=== PATIENT | female | born 1970 | race Caucasian/White ===

== ENCOUNTER 2017-10-03 07:18 | Day surgery (SDC) | payer MEDICAID ==
[2017-10-03] MEDS ORDERED: Propofol 200 MG/20 ML SDV ONE (07:41)
[2017-10-03] MEDS ORDERED: fentaNYL 100 MCG/2 ML SDV ONE (07:41)
[2017-10-03] MEDS ORDERED: Midazolam 1 MG/ML 2 ML SDV ONE (07:41)
[2017-10-03] MEDS ORDERED: Lactated Ringers 1,000 ML IV SCH (08:30)
--- NOTE | 2017-10-04 08:09 | PROC ---
DATE OF PROCEDURE: 10/03/2017 INDICATION: Brittney is a 47-year-old female, who comes in because of abdominal pain. The abdominal pain is unresponsive to taking medication, and the pain continues. The Olympus 180 endoscope was used. PROCEDURE IN DETAIL: Anesthesia was given by nurse clinical operations manager. During the procedure, we used 2 mg of Versed, 2 mcg of fentanyl, and 200 mg of propofol. With a gloved finger, the tube was placed into the pharynx, into the esophagus without difficulty and advanced under direct vision into the body of the stomach. The pylorus identified and advanced into the first and second part of the duodenum. Upon retraction of the tube, noticed no significant duodenal erythema in the duodenal bulb, no ulcerations were noted. The tube was brought back into the stomach, which revealed mucosal erythema. The tube was retroflexed into the fundus, which revealed no abnormality. The greater and lesser curvature were closely evaluated and revealed no acute pathology. The biopsy was done of the antral area for Helicobacter pylori. The air was withdrawn from the stomach. The GE junction was identified. There was a small hiatal hernia noted. The remainder of the esophagus was unremarkable. The vocal cords moved symmetrically, no obvious pathology noted. The tube was removed. The patient tolerated the procedure well. PREOPERATIVE DIAGNOSIS: Abdominal pain. POSTOPERATIVE DIAGNOSES: 1. Duodenitis. 2. Mucosal erythema. Biopsies pending for Helicobacter pylori. Bar Glvoer MD /[id number]
== END 2017-10-03 09:45 | disposition home or self-care (01) ==
LOC: JP.SDS 07:18
PROVIDERS: ATTEND Internal Medicine
DX: K29.80 Duodenitis without bleeding (principal); K31.89 Other diseases of stomach and duodenum; K44.9 Diaphragmatic hernia without obstruction or gangrene; K21.9 Gastro-esophageal reflux disease without esophagitis; F31.9 Bipolar disorder, unspecified; Z88.2 Allergy status to sulfonamides
CPT/HCPCS: 43239; 87081; J2250; J2704; J3010; J7120

== ENCOUNTER 2018-07-11 11:14 | Emergency (ER) | payer MEDICAID, MEDICARE ==
--- NOTE | 2018-07-11 11:51 | EDM.PDOC ---
ED HPI GENERAL MEDICAL PROBLEM - General Chief Complaint: Cardiovascular Problem Stated Complaint: HYPOTENSION Time Seen by Provider: 07/11/18 11:35 Source of Information: Reports: Patient, Old Records, RN History Limitations: Reports: No Limitations - History of Present Illness INITIAL COMMENTS - FREE TEXT/NARRATIVE: 48 yo female was seen at the clinic this morning and had a near syncopal spell while standing that was associated with low BP. Had not eaten anything today before her appt. Is feeling better now in the ER after a glass of water. No recent fever, vomiting, diarrhea or bleeding. Onset: Today Onset Date: 07/11/18 Onset Time: 11:10 Duration: Resolved Prior to Arrival Location: Reports: Generalized Quality: Reports: Other (no new pain) Severity: Moderate Improves with: Reports: Rest, Other (lying, drinking water) Worsens with: Reports: Other (standing in one place) Context: Reports: Other (see HPI) Associated Symptoms: Reports: Diaphoresis (now resolved). Denies: Chest Pain, Fever/Chills, Shortness of Breath Treatments MAIL SUPERINTENDENT: Reports: Other (see below) (water orally) Right Hand Pain Score (Numeric/FACES): 8 - Related Data Allergies Allergy/AdvReac Type Severity Reaction Status Date / Time Sulfa (Sulfonamide Allergy Hives Verified 02/26/18 08:39 Antibiotics) Home Meds: Home Meds Cholecalciferol (Vitamin D3) [Vitamin D3] 5,000 unit PO DAILY 10/01/17 [History] Cyanocobalamin (Vitamin B-12) [B-12] 500 mcg PO DAILY 10/01/17 [History] Ferrous Sulfate, Dried [Slow Release Iron] 200 mg PO DAILY 10/01/17 [History] Gabapentin [Neurontin] 600 mg PO DAILY 10/01/17 [History] Perphenazine 6 mg PO TID 10/01/17 [History] Propranolol HCl [Propranolol HCl ER] 120 mg PO DAILY 10/01/17 [History] QUEtiapine Fumarate [Seroquel Xr] 800 mg PO BEDTIME 10/01/17 [History] Zolpidem Tartrate 10 mg PO BEDTIME PRN 10/01/17 [History] lamoTRIgine [Lamotrigine] 200 mg PO DAILY 10/01/17 [History] Ascorbic Acid [Vitamin C] 500 mg PO DAILY 10/03/17 [History] Furosemide 20 mg PO DAILY 02/19/18 [History] Omeprazole 40 mg PO DAILY 02/19/18 [History] Past Medical History HEENT History: Reports: None Respiratory History: Reports: Sleep Apnea Gastrointestinal History: Reports: GERD Genitourinary History: Reports: None RADIOSONDE SPECIALIST History: Reports: Endometriosis, Musculoskeletal History: Reports: Other (See Below) Other Musculoskeletal History: will be having carpal tunnel surgery 07/22/18 Psychiatric History: Reports: Anxiety, Bipolar, Depression, Other (See Below) Other Psychiatric History: essential tremors Endocrine/Metabolic History: Reports: Hyperthyroidism Hematologic History: Reports: Anemia, Iron Deficiency - Infectious Disease History Infectious Disease History: Reports: Chicken Pox - Past Surgical History HEENT Surgical History: Reports: Adenoidectomy, Tonsillectomy Respiratory Surgical History: Reports: None GI Surgical History: Reports: None Female Surgical History: Reports: Section, Hysterectomy, Salpingo- Oophorectomy Endocrine Surgical History: Reports: None Dermatological Surgical History: Reports: None Social & Family History - Family History Family Medical History: Noncontributory - Tobacco Use Smoking Status *Q: Current Every Day Smoker Years of Tobacco use: 35 Packs/Tins Daily: 0.5 - Caffeine Use Caffeine Use: Reports: Coffee, Soda - Recreational Drug Use Recreational Drug Use: No ED ROS GENERAL - Review of Systems Review Of Systems: See Below Constitutional: Reports: Diaphoresis (transient with spell) HEENT: Reports: No Symptoms Respiratory: Reports: No Symptoms Cardiovascular: Reports: Lightheadedness Endocrine: Reports: No Symptoms GI/Abdominal: Reports: No Symptoms : Reports: No Symptoms Musculoskeletal: Reports: No Symptoms Skin: Reports: Diaphoresis Neurological: Reports: No Symptoms ED EXAM, GENERAL - Physical Exam Exam: See Below Exam Limited By: No Limitations General Appearance: Alert, WD/WN, No Apparent Distress Eye Exam: Bilateral Eye: Normal Inspection Ears: Normal External Exam, Normal Canal, Hearing Grossly Normal, Normal TMs Ear Exam: Bilateral Ear: Auricle Normal, Canal Normal, TM normal Nose: Normal Inspection, Normal Mucosa, No Blood Throat/Mouth: Normal Inspection, Normal Lips, Normal Oropharynx, Normal Voice, No Airway Compromise Head: Atraumatic, Normocephalic Neck: Normal Inspection Respiratory/Chest: No Respiratory Distress, Lungs Clear, Normal Breath Sounds, No Accessory Muscle Use Cardiovascular: Regular Rate, Rhythm, No Edema GI/Abdominal: Normal Bowel Sounds, Soft, Non-Tender, No Distention Back Exam: Normal Inspection. No: CVA Tenderness (R), CVA Tenderness (L) Extremities: Normal Inspection, Normal Range of Motion, Non-Tender, No Pedal Edema Neurological: Alert, Oriented, CN II-XII Intact, Normal Cognition, No Motor/ Sensory Deficits Psychiatric: Normal Affect, Normal Mood Skin Exam: Warm, Dry, Intact, Normal Color Lymphatic: No Adenopathy Course - Vital Signs Last Recorded V/S: Last Vital Signs Temp 35.6 C 07/11/18 11:26 Pulse 99 07/11/18 11:26 Resp 16 07/11/18 11:26 BP 117/71 07/11/18 11:26 Pulse Ox 99 07/11/18 11:26 Orthostatic Blood Pressure [ 117/71 Supine] Orthostatic Blood Pressure [ 102/65 Standing] Orthostatic Blood Pressure [ 111/75 Sitting] Departure - Departure Time of Disposition: 11:50 Disposition: Home, Self-Care 01 Condition: Good Clinical Impression: Vaso vagal episode Instructions: Vasovagal Syncope, Adult Referrals: Bar Glover Sr, MD [Primary Care Provider] - Additional Instructions: Go home and have lunch and drink ample fluids. Recheck as needed.
== END 2018-07-11 12:09 | disposition home or self-care (01) ==
LOC: JP.ED 11:14
DX: R55 Syncope and collapse (principal); F17.210 Nicotine dependence, cigarettes, uncomplicated; E03.9 Hypothyroidism, unspecified; K21.9 Gastro-esophageal reflux disease without esophagitis; F31.9 Bipolar disorder, unspecified; F41.9 Anxiety disorder, unspecified; Z79.899 Other long term (current) drug therapy; Z88.2 Allergy status to sulfonamides
CPT/HCPCS: 99284

== ENCOUNTER 2018-12-27 21:36 | Emergency (ER) | payer MEDICARE ==
--- NOTE | 2018-12-27 21:44 | EDM.PDOC ---
ED HPI GENERAL MEDICAL PROBLEM - General Chief Complaint: Drug or Alcohol Abuse Stated Complaint: INTOXCATION Time Seen by Provider: 12/27/18 21:43 Source of Information: Reports: Patient, EMS, Old Records, RN History Limitations: Reports: Other (poor historian, intoxicated) - History of Present Illness INITIAL COMMENTS - FREE TEXT/NARRATIVE: 47 yo female is brought in by EMS after her boyfriend called saying she was "in and out of conscousness". EMS noted he was intoxicated and she appeared to also be intoxicated. She has a benzodiazepine prescribed, but EMS couldn't locate her bottle. She was fully conscious, but not helpful with regards to history per EMS report. Vital stable. Patient reports feeling depressed lately. Onset: Today Onset Date: 12/27/18 Duration: Hour(s): Location: Reports: Generalized Quality: Reports: Other (no reported pain) Severity: Severe (intoxication) Improves with: Reports: Other (? abstinence from intoxicant's) Worsens with: Reports: Other (drugs and alcohol) Context: Reports: Other (uncertain, suspect intoxication) Associated Symptoms: Reports: Confusion Treatments NEUROSCIENCE DIRECTOR NA: Reports: Other (see below) (none) - Related Data Allergies Allergy/AdvReac Type Severity Reaction Status Date / Time Sulfa (Sulfonamide Allergy Hives Verified 12/27/18 22:10 Antibiotics) Home Meds: Home Meds LORazepam [Ativan] 1 mg PO ASDIRECTED PRN 12/27/18 [History] Naproxen [Naprosyn] 250 mg PO BID 12/27/18 [History] ED ROS GENERAL - Review of Systems Review Of Systems: Unable To Obtain (due to intoxication) - Physical Exam Exam: See Below Exam Limited By: No Limitations General Appearance: WD/WN, No Apparent Distress, Lethargic Eye Exam: Bilateral Eye: Normal Inspection Ears: Normal External Exam, Normal Canal, Hearing Grossly Normal, Normal TMs Nose: Normal Inspection, No Blood Throat/Mouth: Normal Inspection, Normal Lips, Normal Oropharynx, Normal Voice, No Airway Compromise Head Exam: Atraumatic, Normocephalic Neck: Normal Inspection Respiratory/Chest: No Respiratory Distress, Lungs Clear, Normal Breath Sounds, No Accessory Muscle Use Cardiovascular: Regular Rate, Rhythm, No Edema GI/Abdominal: Normal Bowel Sounds, Soft, Non-Tender, No Distention Neuro Exam (Abbreviated): CN II-XII Intact, No Motor/Sensory Deficits, Inattentive, Slow to Respond Back Exam: Normal Inspection. No: CVA Tenderness (R), CVA Tenderness (L) Extremities: Normal Inspection, Normal Range of Motion, Non-Tender, No Pedal Edema Psychiatric: Normal Mood, Flat Affect Skin Exam: Warm, Dry, Intact, Normal Color, No Rash Course - Vital Signs Last Recorded V/S: Last Vital Signs Temp 36.7 C 12/27/18 22:01 Pulse 89 12/28/18 04:05 Resp 13 12/28/18 04:05 BP 133/83 12/28/18 04:05 Pulse Ox 98 12/28/18 04:05 - Orders/Labs/Meds Orders: Active Orders 24 hr Category Date Time Status NS + KCl 20mEq/L [Normal Saline with 20 mEq KCl] 1,000 Med 12/27/18 22:30 Active ml IV ASDIRECTED NS + KCl 20mEq/L [Normal Saline with 20 mEq KCl] 1,000 Med 12/27/18 23:45 Active ml IV ASDIRECTED Medication Orders Potassium Chloride/Sodium Chloride (Normal Saline With 20 Meq Kcl) 1,000 mls @ 1,000 mls/hr IV ASDIRECTED ANNITA Last Admin: 12/27/18 22:38 Dose: 1,000 mls/hr Potassium Chloride/Sodium Chloride (Normal Saline With 20 Meq Kcl) 1,000 mls @ 250 mls/hr IV ASDIRECTED ANNITA Last Admin: 12/28/18 00:38 Dose: 250 mls/hr Labs: Laboratory Tests 12/27/18 12/27/18 12/27/18 Range/Units 21:47 21:47 21:47 WBC 9.1 (4.5-11.0) K/uL RBC 3.08 L (3.30-5.50) M/uL Hgb 10.7 L (12.0-15.0) g/dL Hct 32.8 L (36.0-48.0) % MCV 107 H (80-98) fL MCH 35 H (27-31) pg MCHC 33 (32-36) % Plt Count 274 (150-400) K/uL Sodium 139 L (140-148) mmol/L Potassium 2.8 L* (3.6-5.2) mmol/L Chloride 98 L (100-108) mmol/L Carbon Dioxide 27 (21-32) mmol/L Anion Gap 16.8 H (5.0-14.0) mmol/L BUN 9 (7-18) mg/dL Creatinine 1.3 H (0.6-1.0) mg/dL Est Cr Clr Drug Dosing 48.14 mL/min Estimated GFR (MDRD) 44 L (>60) Glucose 101 (74-106) mg/dL Calcium 9.6 (8.5-10.1) mg/dL Magnesium (1.8-2.4) mg/dL Total Bilirubin 0.3 (0.2-1.0) mg/dL AST 20 (15-37) U/L ALT 21 (12-78) U/L Alkaline Phosphatase 75 (46-116) U/L Total Protein 6.5 (6.4-8.2) g/dL Albumin 3.4 (3.4-5.0) g/dL Globulin 3.1 (2.3-3.5) g/dL Albumin/Globulin Ratio 1.1 L (1.2-2.2) Urine Color Urine Appearance Urine pH (4.5-8.0) Ur Specific [place] (1.008-1.030) Urine Protein (NEGATIVE) mg/dL Urine Glucose (UA) (NEGATIVE) mg/dL Urine Ketones (NEGATIVE) mg/dL Urine Occult Blood (NEGATIVE) Urine Nitrite (NEGATIVE) Urine Bilirubin (NEGATIVE) Urine Urobilinogen (NORMAL) mg/dL Ur Leukocyte Esterase (NEGATIVE) Urine RBC (0-5) Urine WBC (0-5) Ur Epithelial Cells Amorphous Sediment Urine Bacteria Urine Mucus Urine Opiates Screen (NEGATIVE) Ur Oxycodone Screen (NEGATIVE) Urine Methadone Screen (NEGATIVE) Ur Propoxyphene Screen (NEGATIVE) Ur Barbiturates Screen (NEGATIVE) Ur Tricyclics Screen (NEGATIVE) Ur Phencyclidine Scrn (NEGATIVE) Ur Amphetamine Screen (NEGATIVE) U Methamphetamines Scrn (NEGATIVE) Urine MDMA Screen (NEGATIVE) U Benzodiazepines Scrn (NEGATIVE) U Cocaine Metab Screen (NEGATIVE) U Marijuana (THC) Screen (NEGATIVE) Ethyl Alcohol 184 mg/dL 12/27/18 12/27/18 12/28/18 Range/Units 21:58 22:20 00:13 WBC (4.5-11.0) K/uL RBC (3.30-5.50) M/uL Hgb (12.0-15.0) g/dL Hct (36.0-48.0) % MCV (80-98) fL MCH (27-31) pg MCHC (32-36) % Plt Count (150-400) K/uL Sodium (140-148) mmol/L Potassium (3.6-5.2) mmol/L Chloride (100-108) mmol/L Carbon Dioxide (21-32) mmol/L Anion Gap (5.0-14.0) mmol/L BUN (7-18) mg/dL Creatinine (0.6-1.0) mg/dL Est Cr Clr Drug Dosing mL/min Estimated GFR (MDRD) (>60) Glucose (74-106) mg/dL Calcium (8.5-10.1) mg/dL Magnesium 1.0 L (1.8-2.4) mg/dL Total Bilirubin (0.2-1.0) mg/dL AST (15-37) U/L ALT (12-78) U/L Alkaline Phosphatase (46-116) U/L Total Protein (6.4-8.2) g/dL Albumin (3.4-5.0) g/dL Globulin (2.3-3.5) g/dL Albumin/Globulin Ratio (1.2-2.2) Urine Color Yellow Urine Appearance Clear Urine pH 6.0 (4.5-8.0) Ur Specific [place] 1.010 (1.008-1.030) Urine Protein Negative (NEGATIVE) mg/dL Urine Glucose (UA) Negative (NEGATIVE) mg/dL Urine Ketones Negative (NEGATIVE) mg/dL Urine Occult Blood Negative (NEGATIVE) Urine Nitrite Negative (NEGATIVE) Urine Bilirubin Negative (NEGATIVE) Urine Urobilinogen Normal (NORMAL) mg/dL Ur Leukocyte Esterase Negative (NEGATIVE) Urine RBC 0-5 (0-5) Urine WBC 0-5 (0-5) Ur Epithelial Cells Many Amorphous Sediment Numerous Urine Bacteria Few Urine Mucus Few Urine Opiates Screen Negative (NEGATIVE) Ur Oxycodone Screen Negative (NEGATIVE) Urine Methadone Screen Negative (NEGATIVE) Ur Propoxyphene Screen Negative (NEGATIVE) Ur Barbiturates Screen Negative (NEGATIVE) Ur Tricyclics Screen Negative (NEGATIVE) Ur Phencyclidine Scrn Negative (NEGATIVE) Ur Amphetamine Screen Negative (NEGATIVE) U Methamphetamines Scrn Negative (NEGATIVE) Urine MDMA Screen Negative (NEGATIVE) U Benzodiazepines Scrn Presumptive positive H (NEGATIVE) U Cocaine Metab Screen Negative (NEGATIVE) U Marijuana (THC) Screen Negative (NEGATIVE) Ethyl Alcohol mg/dL 12/28/18 Range/Units 06:06 WBC (4.5-11.0) K/uL RBC (3.30-5.50) M/uL Hgb (12.0-15.0) g/dL Hct (36.0-48.0) % MCV (80-98) fL MCH (27-31) pg MCHC (32-36) % Plt Count (150-400) K/uL Sodium (140-148) mmol/L Potassium 3.3 L (3.6-5.2) mmol/L Chloride (100-108) mmol/L Carbon Dioxide (21-32) mmol/L Anion Gap (5.0-14.0) mmol/L BUN (7-18) mg/dL Creatinine (0.6-1.0) mg/dL Est Cr Clr Drug Dosing mL/min Estimated GFR (MDRD) (>60) Glucose (74-106) mg/dL Calcium (8.5-10.1) mg/dL Magnesium 2.2 D (1.8-2.4) mg/dL Total Bilirubin (0.2-1.0) mg/dL AST (15-37) U/L ALT (12-78) U/L Alkaline Phosphatase (46-116) U/L Total Protein (6.4-8.2) g/dL Albumin (3.4-5.0) g/dL Globulin (2.3-3.5) g/dL Albumin/Globulin Ratio (1.2-2.2) Urine Color Urine Appearance Urine pH (4.5-8.0) Ur Specific [place] (1.008-1.030) Urine Protein (NEGATIVE) mg/dL Urine Glucose (UA) (NEGATIVE) mg/dL Urine Ketones (NEGATIVE) mg/dL Urine Occult Blood (NEGATIVE) Urine Nitrite (NEGATIVE) Urine Bilirubin (NEGATIVE) Urine Urobilinogen (NORMAL) mg/dL Ur Leukocyte Esterase (NEGATIVE) Urine RBC (0-5) Urine WBC (0-5) Ur Epithelial Cells Amorphous Sediment Urine Bacteria Urine Mucus Urine Opiates Screen (NEGATIVE) Ur Oxycodone Screen (NEGATIVE) Urine Methadone Screen (NEGATIVE) Ur Propoxyphene Screen (NEGATIVE) Ur Barbiturates Screen (NEGATIVE) Ur Tricyclics Screen (NEGATIVE) Ur Phencyclidine Scrn (NEGATIVE) Ur Amphetamine Screen (NEGATIVE) U Methamphetamines Scrn (NEGATIVE) Urine MDMA Screen (NEGATIVE) U Benzodiazepines Scrn (NEGATIVE) U Cocaine Metab Screen (NEGATIVE) U Marijuana (THC) Screen (NEGATIVE) Ethyl Alcohol mg/dL Meds: Medications Generic Name Dose Route Start Last Admin Trade Name Freq PRN Reason Stop Dose Admin Potassium Chloride/Sodium Chloride 1,000 mls @ 1,000 mls/hr 12/27/18 22:30 22:38 Normal Saline With 20 Meq Kcl IV 1,000 mls/hr ASDIRECTED ANNITA Administration Potassium Chloride/Sodium Chloride 1,000 mls @ 250 mls/hr 12/27/18 23:45 00:38 Normal Saline With 20 Meq Kcl IV 250 mls/hr ASDIRECTED ANNITA Administration Discontinued Medications Generic Name Dose Route Start Last Admin Trade Name Freq PRN Reason Stop Dose Admin Magnesium Sulfate 2 gm/ Premix 50 mls @ 12.5 mls/hr 12/27/18 22:36 12/27/18 22:55 IV 12/28/18 02:35 12.5 mls/hr ONETIME ONE Administration Magnesium Sulfate 2 gm/ Premix 50 mls @ 12.5 mls/hr 12/28/18 02:09 12/28/18 02:33 IV 12/28/18 06:08 12.5 mls/hr ONETIME ONE Administration Magnesium Oxide 800 mg 12/27/18 22:37 12/27/18 23:00 Magnesium Oxide PO 12/27/18 22:38 800 mg ONETIME ONE Administration Potassium Chloride 40 meq 12/27/18 22:37 12/27/18 23:00 Potassium Chloride PO 12/27/18 22:38 40 meq ONETIME ONE Administration Potassium Chloride 40 meq 12/28/18 02:10 12/28/18 02:30 Potassium Chloride PO 12/28/18 02:11 40 meq ONETIME ONE Administration Potassium Chloride 40 meq 12/28/18 07:24 Potassium Chloride PO 12/28/18 07:25 ONETIME ONE Thiamine HCl 100 mg 12/28/18 02:14 12/28/18 02:30 Vitamin B-1 PO 12/28/18 02:15 100 mg ONETIME ONE Administration Departure - Departure Time of Disposition: 08:00 Disposition: Home, Self-Care 01 Condition: Fair Clinical Impression: Hypomagnesemia, Hypokalemia, Macrocytic anemia Alcohol intoxication Qualifiers: Complication of substance-induced condition: with unspecified complication Qualified Code(s): F10.929 - Alcohol use, unspecified with intoxication, unspecified - Discharge Information *PRESCRIPTION DRUG MONITORING PROGRAM REVIEWED*: No *COPY OF PRESCRIPTION DRUG MONITORING REPORT IN PATIENT JOSÉ LUIS: No Instructions: Potassium Content of Foods, Hypomagnesemia Referrals: PCP,None [Primary Care Provider] - Forms: ED Department Discharge Additional Instructions: No alcohol consumption. F/U with Dr. Glover soon to get your labs reviewed as soon as possible. Return here as needed. - My Orders Last 24 Hours: My Active Orders 12/27/18 22:30 NS + KCl 20mEq/L [Normal Saline with 20 mEq KCl] 1,000 ml IV ASDIRECTED 12/27/18 23:45 NS + KCl 20mEq/L [Normal Saline with 20 mEq KCl] 1,000 ml IV ASDIRECTED - Assessment/Plan Last 24 Hours: My Active Orders 12/27/18 22:30 NS + KCl 20mEq/L [Normal Saline with 20 mEq KCl] 1,000 ml IV ASDIRECTED 12/27/18 23:45 NS + KCl 20mEq/L [Normal Saline with 20 mEq KCl] 1,000 ml IV ASDIRECTED
[2018-12-27] MEDS ORDERED: NS + KCl 20mEq/L 1,000 ML IV SCH ×2 (22:30→23:45)
[2018-12-27] MEDS ORDERED: Magnesium Sulfate/Water 2 GM in Premix Bag 1 BAG IV ONE (22:36)
[2018-12-27] MEDS ORDERED: Potassium Chloride 10 MEQ Cap.ER PO ONE (22:37)
[2018-12-27] MEDS ORDERED: Magnesium Oxide 400 MG Tab PO ONE (22:37)
[2018-12-28] MEDS ORDERED: Magnesium Sulfate/Water 2 GM in Premix Bag 1 BAG IV ONE (02:09)
[2018-12-28] MEDS ORDERED: Potassium Chloride 10 MEQ Cap.ER PO ONE ×2 (02:10→07:24)
[2018-12-28] MEDS ORDERED: Thiamine 100 MG Tab PO ONE (02:14)
== END 2018-12-28 08:20 | disposition home or self-care (01) ==
LOC: EDBD 21:36 → MERGE 21:36 → JP.ED 21:36
DX: F10.129 Alcohol abuse with intoxication, unspecified (principal); Y90.6 Blood alcohol level of 120-199 mg/100 ml; D53.9 Nutritional anemia, unspecified; E87.6 Hypokalemia; E83.42 Hypomagnesemia; Z88.2 Allergy status to sulfonamides; Z79.899 Other long term (current) drug therapy
CPT/HCPCS: 36415; 80053; 80305; 81001; 83735; 84132; 85027; 96365; 96366; 96367; 96368; 99283; A9270; G0480; J3475; J3480; 99284

== ENCOUNTER 2020-02-09 07:45 | Day surgery (SDC) | payer MEDICARE ==
[~2020-02-09 07:45] MED LIST: Lidocaine 2% Viscous Solution 15 ML Cup ONE; Lidocaine 4% Top Soln 50 ML Bottle ONE; Midazolam 1 MG/ML 2 ML SDV ONE; Propofol 200 MG/20 ML SDV ONE; fentaNYL 100 MCG/2 ML SDV ONE
[2020-02-09] MEDS ORDERED: Dextrose 5%-Lactated Ringers 1,000 ML IV SCH (08:15)
[2020-02-09] MEDS ORDERED: Glycopyrrolate 0.2 MG/ML 2 ML SDV IVPUSH ONE (08:45)
[2020-02-09] MEDS ORDERED: Propofol 200 MG/20 ML SDV ONE (08:57)
[2020-02-09] MEDS ORDERED: Lidocaine 4% Top Soln LTA 4 ML Syringe Kit ONE (08:58)
--- NOTE | 2020-02-17 11:21 | OR ---
DATE OF PROCEDURE: 02/09/2020 SURGEON: Bennie Cat MD PREOPERATIVE DIAGNOSIS: Chronic cough. POSTOPERATIVE DIAGNOSIS: Chronic cough with no grossly abnormal bronchoscopic findings. OPERATIVE PROCEDURE: Flexible bronchoscopy with: 1. General tracheobronchial washings (50907). 2. Bronchoalveolar lavage to the right upper lobe ([id number]). ANESTHESIA: Topical plus IV sedation. INDICATIONS FOR PROCEDURE: This 49-year-old female presenting with a 3-month history of chronic cough. The patient had a CT scan which was otherwise unremarkable along with a chest x-ray. Plan is to proceed with flexible bronchoscopy with biopsies and/or the lavage as indicated. Potential risks including bleeding, aspiration of gastric contents, and further infectious problems developing were all reviewed, and the patient wishes to proceed. DETAILS OF PROCEDURE: The patient was taken to the operating room, placed in a supine position. IV sedation was administered, after which the nasal passages, pharynx, and larynx were anesthetized with topical lidocaine solution, and Anesthesia then passed lidocaine into the trachea. The bronchoscope was then passed to the right side of the nose. Visualized nasopharynx, hypopharynx, and larynx were otherwise unremarkable. Cord motion was symmetrical. As one passed the scope into the trachea, generalized tracheobronchial examination was undertaken. This was associated with some mucoid secretions which were relatively easily broken up with some saline and lidocaine injections. Otherwise, there were no gross abnormalities on the tracheobronchial examination. At this point, generalized tracheobronchial washings were obtained and these were sent for microbiologic and cytologic workup. At this point, the bronchoscope was wedged in the right upper lobe bronchus and 200 mL of saline was injected after which the aspirate was evacuated. It was noted that the return had a thin loo brown appearance indicating some possible pathology. This return was also then sent for cytology as well as full microbiologic workup. At that point, no further problems were noted. The procedure was then concluded. The patient was taken to the recovery room in satisfactory condition. The patient will be following up with Dr. Glover in the next week or so. If the patient's symptoms persist and there is no specific diagnosis achieved by the washings and lavage, one might consider adding some nebulizer treatments with Mucomyst and then perhaps Pulmonary Medicine consultation. Bennie Cat MD /[id number]
== END 2020-02-09 10:30 | disposition home or self-care (01) ==
LOC: JP.SDS 07:45
PROVIDERS: ATTEND Surgery
DX: J20.9 Acute bronchitis, unspecified (principal); I10 Essential (primary) hypertension; Z87.891 Personal history of nicotine dependence
CPT/HCPCS: 31624; 87015; 87070; 87102; 87116; 87205; 87206; 87220; 88112; 88305; 88312; A9270; J2250; J2704; J3010; J3490; J7121

== ENCOUNTER 2020-10-23 14:46 | Inpatient (IN) | payer MEDICARE, SELFPAY ==
[2020-10-23] MEDS ORDERED: Sodium Chloride 0.9% 10 ML Syringe FLUSH PRN (15:11)
[2020-10-23] MEDS ORDERED: Aspirin 81 MG Tab.Chew PO ONE (15:13)
[2020-10-23] MEDS ORDERED: Famotidine 20 MG/2 ML SDV IVPUSH ONE (15:36)
[2020-10-23] MEDS ORDERED: Alum Hydrox/Mag Hydrox/Simeth 15 ML, Lidocaine 2% 15 ML PO ONE ×2 (15:36)
[2020-10-23] MEDS ORDERED: MVI, Adult with Vitamin K 10 ML, Thiamine 100 MG, Folic Acid 1 MG, Magnesium Sulfate 3 ... IV SCH ×5 (15:45)
[2020-10-23] MEDS ORDERED: Potassium Chloride 20 MEQ, Lidocaine 1% 2 ML in Sodium Chloride 0.9% 100 ML IV SCH (16:00)
[2020-10-23] MEDS: Potassium Chloride 100 ML IV SCH ×2 (16:35→19:51)
--- NOTE | 2020-10-23 16:40 | EDM.PDOC ---
ED HPI GENERAL MEDICAL PROBLEM - General Chief Complaint: Syncope Stated Complaint: BLACKING OUT, CHEST PAIN Time Seen by Provider: 10/23/20 15:30 Source of Information: Reports: Patient, RN Notes Reviewed History Limitations: Reports: No Limitations - History of Present Illness INITIAL COMMENTS - FREE TEXT/NARRATIVE: Brittney presents today with complaints of fatigue, dizziness, feeling thirsty, SOB with activity, chest and epigastric pain off and on for several days. She reports burning pain into throat at times. She states she started drinking vodka after being sober this past about 1 liter a day or so. She reports she has been feeling down and depressed since her significant other by suicide about 90 days ago. She denies any recent injury, trauma, s uicidal/homicidal ideation or plan. She denies fever, chills or change in bowel/bladder. She does report some nausea and vomiting the past two days. Left Chest Pain Score (Numeric/FACES): 3 - Related Data Allergies Allergy/AdvReac Type Severity Reaction Status Date / Time Sulfa (Sulfonamide Allergy Hives Verified 10/23/20 20:14 Antibiotics) Home Meds: Home Meds Ferrous Sulfate, Dried [Slow Release Iron] 200 mg PO DAILY 10/01/17 [History] Gabapentin [Neurontin] 600 mg PO TID 10/01/17 [History] lamoTRIgine [Lamotrigine] 200 mg PO QAM 10/01/17 [History] Ascorbic Acid [Vitamin C] 500 mg PO DAILY 10/03/17 [History] Omeprazole 40 mg PO DAILY 02/19/18 [History] LORazepam [Ativan] 1 mg PO QID PRN 12/27/18 [History] Budesonide/Formoterol Fumarate [Budesonide-Formoterol 80-4.5] 2 puff IH BID PRN 02/05/20 [History] Calcium Carbonate [Calcium] 600 mg PO DAILY 02/05/20 [History] Cholecalciferol (Vitamin D3) [Vitamin D3] 2,000 unit PO DAILY 02/05/20 [History] Cyproheptadine HCl 8 mg PO BID 02/05/20 [History] Ibuprofen 800 mg PO TIDMEALS PRN 02/05/20 [History] Nitroglycerin [Nitrostat] 0.4 mg SL ASDIRECTED PRN 02/05/20 [History] Pravastatin Sodium 20 mg PO DAILY 02/05/20 [History] QUEtiapine [SEROquel] 1,200 mg PO BEDTIME 02/05/20 [History] Topiramate 25 mg PO BEDTIME 02/05/20 [History] Zinc 50 mg PO DAILY 02/05/20 [History] buPROPion [Wellbutrin SR] 150 mg PO DAILY 02/05/20 [History] lamoTRIgine [Lamotrigine] 250 mg PO BEDTIME 02/05/20 [History] Metoprolol Succinate 25 mg PO DAILY 03/28/20 [History] Vitamin E 200 units PO DAILY 03/31/20 [History] Past Medical History HEENT History: Reports: None Cardiovascular History: Reports: Angina, High Cholesterol, SOB on Exertion, Syncope, Other (See Below) Other Cardiovascular History: "small leak in heart pt states per Dr. 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: Endometriosis, Musculoskeletal History: Reports: Other (See Below) Other Musculoskeletal History: will be having carpal tunnel surgery 07/22/18 Psychiatric History: Reports: Addiction, Anxiety, Bipolar, Depression Other Psychiatric History: essential tremors Endocrine/Metabolic History: Reports: Hyperthyroidism Hematologic History: Reports: Anemia, Iron Deficiency - Infectious Disease History Infectious Disease History: Reports: Chicken Pox, Measles - Past Surgical History HEENT Surgical History: Reports: Adenoidectomy, Tonsillectomy Cardiovascular Surgical History: Reports: None Respiratory Surgical History: Reports: None GI Surgical History: Reports: Colonoscopy, EGD Female Surgical History: Reports: Section, Hysterectomy, Salpingo- Oophorectomy Endocrine Surgical History: Reports: None Musculoskeletal Surgical History: Reports: Carpal Tunnel Social & Family History - Family History Family Medical History: No Pertinent Family History - Tobacco Use Tobacco Use Status *Q: Current Every Day Tobacco User Years of Tobacco use: 32 Packs/Tins Daily: 0.5 - Caffeine Use Caffeine Use: Reports: Coffee - Alcohol Use Date of Last Drink: 10/20/20 - Recreational Drug Use Recreational Drug Use: No ED ROS GENERAL - Review of Systems Review Of Systems: See Below Constitutional: Reports: Fatigue HEENT: Reports: No Symptoms Respiratory: Reports: Shortness of Breath (with activity sometims) Cardiovascular: Reports: Chest Pain (and epigastric pain off and on for several days, worse to epigastric area since use of alcohol this past with burning sensation. ) Endocrine: Reports: Fatigue GI/Abdominal: Reports: Decreased Appetite. Denies: Black Stool, Bloody Stool, Constipation, Diarrhea, Flatus, Hematemesis, Hematochezia, Melena, Nausea, Vomiting : Reports: No Symptoms Musculoskeletal: Reports: No Symptoms Skin: Reports: No Symptoms Neurological: Reports: No Symptoms Psychiatric: Reports: Anxiety, Depression Hematologic/Lymphatic: Reports: No Symptoms Immunologic: Reports: No Symptoms ED EXAM, GENERAL - Physical Exam Exam: See Below Exam Limited By: No Limitations General Appearance: Alert, WD/WN, No Apparent Distress Eye Exam: Bilateral Eye: Normal Inspection, PERRL Ear Exam: Bilateral Ear: Auricle Normal, Canal Normal, TM normal Throat/Mouth: Normal Inspection, Normal Lips, Normal Gums, Normal Oropharynx, Normal Voice, No Airway Compromise Head: Atraumatic, Normocephalic Neck: Normal Inspection, Supple, Non-Tender, Full Range of Motion. No: Lymphadenopathy (R), Lymphadenopathy (L) Respiratory/Chest: No Respiratory Distress, Lungs Clear, Normal Breath Sounds, No Accessory Muscle Use, Chest Non-Tender Cardiovascular: Normal Peripheral Pulses, Regular Rate, Rhythm, No Edema, No Gallop, No Murmur, No Rub, Other (tenderness withpalpation to epigastric/left chest) Peripheral Pulses: 3+: Radial (L), Radial (R) GI/Abdominal: Normal Bowel Sounds, Soft, Non-Tender, No Organomegaly, No Distention, No Mass. No: Guarding, Rigid, Rebound, Tender Back Exam: Normal Inspection, Full Range of Motion. No: CVA Tenderness (R), CVA Tenderness (L) Extremities: Normal Inspection, Normal Range of Motion, Non-Tender, No Pedal Edema, Normal Capillary Refill Neurological: Alert, Oriented, Normal Cognition, Normal Gait, No Motor/Sensory Deficits Psychiatric: Normal Affect, Depressed Mood Skin Exam: Warm, Dry, Intact, Normal Color, No Rash Lymphatic: No Adenopathy #1 Interpretation EKG Date: 10/23/20 Time: 16:20 Rhythm: NSR Rate (Beats/Min): 86 [place]: Normal P-Wave: Present QRS: Normal ST-T: Other (flipped t waves all leads except V3, V2, hypokalemia) QT: Normal Comparison: Change From Previous EKG Course - Vital Signs Last Recorded V/S: Last Vital Signs Temp 36.1 C 10/23/20 19:13 Pulse 91 10/23/20 19:13 Resp 13 10/23/20 19:13 BP 130/73 10/23/20 19:13 Pulse Ox 96 10/23/20 19:13 - Orders/Labs/Meds Orders: Active Orders 24 hr Category Date Time Status Patient Status [ADT] Routine ADT 10/23/20 19:13 Active Antiembolic Devices [RC] .Routine Care 10/23/20 19:13 Active CIWAA Assessment [RC] Q1H Care 10/23/20 19:13 Active Cardiac Monitoring [RC] CONTINUOUS Care 10/23/20 19:13 Active Intake and Output [RC] QSHIFT Care 10/23/20 19:13 Active Notify Provider Vital Signs [RC] ASDIRECTED Care 10/23/20 19:13 Active Notify Provider [RC] PRN Care 10/23/20 19:13 Active Oxygen Therapy [RC] PRN Care 10/23/20 19:13 Active RT Aerosol Therapy [RC] ASDIRECTED Care 10/23/20 19:13 Active Up With Assistance [RC] ASDIRECTED Care 10/23/20 19:13 Active VTE/DVT Education [RC] Per Unit Routine Care 10/23/20 19:13 Active Vital Signs [RC] Q4H Care 10/23/20 19:13 Active PT Evaluation and Treatment [CONS] Routine Cons 10/24/20 07:00 Active Regular Diet [DIET] Diet 10/23/20 Dinner Active Chest 1V Frontal [CR] Stat Exams 10/23/20 15:12 Taken AMMONIA VENOUS [CHEM] AM Lab 10/24/20 05:11 Ordered CBC W/O DIFF,HEMOGRAM [HEME] AM Lab 10/24/20 05:11 Ordered COMPREHENSIVE METABOLIC PN,CMP [CHEM] AM Lab 10/24/20 05:11 Ordered POTASSIUM,K [CHEM] Routine Lab 10/23/20 22:00 Ordered TROPONIN I [CHEM] Routine Lab 10/23/20 22:00 Ordered Acetaminophen [TylenoL] Med 10/23/20 19:13 Active 650 mg PO Q4H PRN Albuterol [Proventil Neb Soln] Med 10/23/20 19:13 Active 2.5 mg NEB Q4H PRN Cyproheptadine HCl [Cyproheptadine HCl] Med 10/23/20 21:00 Pending 8 mg PO BID Docusate Sodium/Sennosides [Senna Plus] Med 10/23/20 19:13 Active 1 tab PO BID PRN Folic Acid Med 10/24/20 09:00 Active 1 mg PO DAILY Gabapentin [Neurontin] Med 10/23/20 21:00 Active 600 mg PO TID LORazepam [Ativan] Med 10/23/20 19:13 Active 1 mg PO QID PRN LORazepam [Ativan] Med 10/23/20 19:13 Active See Protocol IV ASDIRECTED LORazepam [Ativan] Med 10/23/20 19:13 Active See Protocol PO ASDIRECTED Magnesium Hydroxide [Milk of Magnesia] Med 10/23/20 19:13 Active 30 ml PO Q12H PRN Melatonin Med 10/23/20 21:00 Active 9 mg PO BEDTIME Metoprolol Succinate [Toprol XL] Med 10/24/20 09:00 Active 25 mg PO DAILY Mometasone/Formoterol [Dulera 100-5 MCG] Med 10/23/20 21:00 Active 2 puff IH BIDRT NS + KCl 20mEq/L [Normal Saline with 20 mEq KCl] 1,000 Med 10/23/20 19:13 Active ml IV ASDIRECTED Nicotine [Habitrol] Med 10/24/20 09:00 Active 14 mg TRDERM DAILY Ondansetron [Zofran ODT] Med 10/23/20 19:13 Active 4 mg PO Q6H PRN Ondansetron [Zofran] Med 10/23/20 19:13 Active 4 mg IV Q6H PRN Pantoprazole [ProTONIX] Med 10/23/20 19:13 Active 40 mg PO BIDAC Pravastatin [Pravachol] Med 10/24/20 09:00 Active 20 mg PO DAILY QUEtiapine [SEROqueL] Med 10/23/20 21:00 Active 1,200 mg PO BEDTIME Sodium Chloride 0.9% [Saline Flush] Med 10/23/20 15:11 Active 10 ml FLUSH ASDIRECTED PRN Thiamine [Vitamin B-1] Med 10/24/20 09:00 Active 100 mg PO DAILY Topiramate [Topamax] Med 10/23/20 21:00 Active 25 mg PO BEDTIME buPROPion [Wellbutrin SR] Med 10/24/20 09:00 Active 150 mg PO DAILY lamoTRIgine Med 10/23/20 21:00 Active 100 mg PO BEDTIME lamoTRIgine Med 10/24/20 09:00 Active 100 mg PO QAM Saline Lock Insert [OM.PC] Routine Oth 10/23/20 15:11 Ordered Sequential Compression Device [OM.PC] Routine Oth 10/23/20 19:13 Ordered Resuscitation Status Routine Resus Stat 10/23/20 17:54 Ordered EKG 12 Lead [EK] Routine Ther 10/23/20 15:11 Stop Req Medication Orders Acetaminophen (Acetaminophen 325 Mg Tab) 650 mg PO Q4H PRN PRN Reason: Pain (Mild 1-3)/fever Albuterol (Albuterol 0.083% 2.5 Mg/3 Ml Neb Soln) 2.5 mg NEB Q4H PRN PRN Reason: Shortness Of Breath/wheezing Bupropion HCl (Bupropion 150 Mg Tab.Sr) 150 mg PO DAILY ANNITA Folic Acid (Folic Acid 1 Mg Tab) 1 mg PO DAILY ANNITA Gabapentin (Gabapentin 300 Mg Cap) 600 mg PO TID [facility] Last Admin: 10/23/20 21:27 Dose: 600 mg Documented by: MARGA Haloperidol Lactate (Haloperidol Lactate 5 Mg/Ml Sdv) 5 mg IVPUSH Q4H PRN PRN Reason: Agitation Potassium Chloride/Sodium Chloride (Normal Saline With 20 Meq Kcl) 1,000 mls @ 125 mls/hr IV ASDIRECTED [facility] Last Admin: 10/23/20 19:52 Dose: 125 mls/hr Documented by: MARGA Lamotrigine (Lamotrigine 100 Mg Tab) 100 mg PO QAM ANNITA Lamotrigine (Lamotrigine 100 Mg Tab) 100 mg PO BEDTIME [facility] Last Admin: 10/23/20 21:27 Dose: 100 mg Documented by: MARGA Lamotrigine (Lamotrigine 25 Mg Tab) 25 mg PO BEDTIME [facility] Last Admin: 10/23/20 21:27 Dose: 25 mg Documented by: MARGA Lorazepam (Lorazepam 1 Mg Tab) 1 mg PO QID PRN PRN Reason: Anxiety Lorazepam (Lorazepam 1 Mg Tab) 0 mg PO ASDIRECTED [facility]; Protocol Lorazepam (Lorazepam 2 Mg/Ml Sdv) 0 mg IV ASDIRECTED [facility]; Protocol Last Admin: 10/23/20 21:24 Dose: 3 mg Documented by: Admin: 10/23/20 20:42 Dose: 2 mg Documented by: Admin: 10/23/20 19:57 Dose: 2 mg Documented by: MARGA Magnesium Hydroxide (Magnesium Hydroxide 400 Mg/5 Ml Susp 30 Ml Cup) 30 ml PO Q12H PRN PRN Reason: Constipation Melatonin (Melatonin 3 Mg Tab) 9 mg PO BEDTIME [facility] Last Admin: 10/23/20 21:27 Dose: 9 mg Documented by: MARGA Metoprolol Succinate (Metoprolol Succinate 25 Mg Tab.Er) 25 mg PO DAILY [facility] Mometasone Furoate/Formoterol Fumar (Formoterol/Mometasone 100-5 Mcg 8.8 Gm Inhaler) 2 puff IH BIDRT [facility] Last Admin: 10/23/20 20:45 Dose: Not Given Documented by: MARGA Nicotine (Nicotine 14 Mg/24 Hr Patch) 14 mg TRDERM DAILY [facility] Non-Formulary Medication (Cyproheptadine Hcl [Cyproheptadine Hcl]) 8 mg PO BID ANNITA Ondansetron HCl (Ondansetron 4 Mg/2 Ml Sdv) 4 mg IV Q6H PRN PRN Reason: Nausea/Vomiting Ondansetron HCl (Ondansetron 4 Mg Tab.Dis) 4 mg PO Q6H PRN PRN Reason: Nausea able to take PO Pantoprazole Sodium (Pantoprazole 40 Mg Tab.Cr) 40 mg PO BIDAC [facility] Last Admin: 10/23/20 21:27 Dose: 40 mg Documented by: MARGA Pravastatin Sodium (Pravastatin 20 Mg Tab) 20 mg PO DAILY [facility] Quetiapine Fumarate (Quetiapine 300 Mg Tab) 1,200 mg PO BEDTIME [facility] Last Admin: 10/23/20 21:27 Dose: 1,200 mg Documented by: MARGA Senna/Docusate Sodium (Docusate Sodium/Sennosides 50-8.6 Mg Tab) 1 tab PO BID PRN PRN Reason: Constipation Sodium Chloride (Sodium Chloride 0.9% 10 Ml Syringe) 10 ml FLUSH ASDIRECTED PRN PRN Reason: Keep Vein Open Last Admin: 10/23/20 15:30 Dose: 10 ml Documented by: JAZMINE Thiamine HCl (Thiamine 100 Mg Tab) 100 mg PO DAILY ANNITA Topiramate (Topiramate 25 Mg Tab) 25 mg PO BEDTIME ANNITA Last Admin: 10/23/20 21:27 Dose: 25 mg Documented by: MARGA Labs: Laboratory Tests 10/23/20 10/23/20 10/23/20 Range/Units 15:24 15:24 15:24 WBC 7.8 (4.5-11.0) K/uL RBC 3.77 (3.30-5.50) M/uL Hgb 12.3 (12.0-15.0) g/dL Hct 36.5 (36.0-48.0) % MCV 97 (80-98) fL MCH 33 H (27-31) pg MCHC 34 (32-36) % Plt Count 399 (150-400) K/uL Neut % (Auto) 65.4 (36-66) % Lymph % (Auto) 19.1 L (24-44) % [place] % (Auto) 12.6 H (2-6) % Eos % (Auto) 2.4 (2-4) % Baso % (Auto) 0.5 (0-1) % PT 10.6 (9.5-12.0) sec INR 0.97 (0.80-1.20) APTT 24.6 L (27.0-36.0) sec Sodium 136 L (140-148) mmol/L Potassium 2.6 L* (3.6-5.2) mmol/L Chloride 91 L (100-108) mmol/L Carbon Dioxide 30 (21-32) mmol/L Anion Gap 17.6 H (5.0-14.0) mmol/L BUN 26 H D (7-18) mg/dL Creatinine 1.8 H (0.6-1.0) mg/dL Est Cr Clr Drug Dosing 33.65 mL/min Estimated GFR (MDRD) 30 L (>60) Glucose 126 H (74-106) mg/dL Calcium 9.3 (8.5-10.1) mg/dL Magnesium (1.8-2.4) mg/dL Total Bilirubin 0.4 (0.2-1.0) mg/dL AST 17 (15-37) U/L ALT 18 (12-78) U/L Alkaline Phosphatase 94 (46-116) U/L Troponin I < 0.017 (0.000-0.056) ng/mL Total Protein 7.5 (6.4-8.2) g/dL Albumin 4.0 (3.4-5.0) g/dL Globulin 3.5 (2.3-3.5) g/dL Albumin/Globulin Ratio 1.1 L (1.2-2.2) Ethyl Alcohol mg/dL 10/23/20 10/23/20 Range/Units 15:40 15:40 WBC (4.5-11.0) K/uL RBC (3.30-5.50) M/uL Hgb (12.0-15.0) g/dL Hct (36.0-48.0) % MCV (80-98) fL MCH (27-31) pg MCHC (32-36) % Plt Count (150-400) K/uL Neut % (Auto) (36-66) % Lymph % (Auto) (24-44) % [place] % (Auto) (2-6) % Eos % (Auto) (2-4) % Baso % (Auto) (0-1) % PT (9.5-12.0) sec INR (0.80-1.20) APTT (27.0-36.0) sec Sodium (140-148) mmol/L Potassium (3.6-5.2) mmol/L Chloride (100-108) mmol/L Carbon Dioxide (21-32) mmol/L Anion Gap (5.0-14.0) mmol/L BUN (7-18) mg/dL Creatinine (0.6-1.0) mg/dL Est Cr Clr Drug Dosing mL/min Estimated GFR (MDRD) (>60) Glucose (74-106) mg/dL Calcium (8.5-10.1) mg/dL Magnesium 1.8 (1.8-2.4) mg/dL Total Bilirubin (0.2-1.0) mg/dL AST (15-37) U/L ALT (12-78) U/L Alkaline Phosphatase (46-116) U/L Troponin I (0.000-0.056) ng/mL Total Protein (6.4-8.2) g/dL Albumin (3.4-5.0) g/dL Globulin (2.3-3.5) g/dL Albumin/Globulin Ratio (1.2-2.2) Ethyl Alcohol 5 mg/dL Patient lab work reviewed, patient denies chest pain at this time, tearful with review of lab work. She reports her significant other recently from suicide and she was the one who found him. Emotional support provided. Meds: Medications Generic Name Dose Route Start Last Admin Trade Name Freq PRN Reason Stop Dose Admin Acetaminophen 650 mg 10/23/20 19:13 Acetaminophen 325 Mg Tab PO Q4H PRN Pain (Mild 1-3)/fever Albuterol 2.5 mg 10/23/20 19:13 Albuterol 0.083% 2.5 Mg/3 Ml Neb Soln NEB Q4H PRN Shortness Of Breath/wheezing Bupropion HCl 150 mg 10/24/20 09:00 Bupropion 150 Mg Tab.Sr PO DAILY ANNITA Folic Acid 1 mg 10/24/20 09:00 Folic Acid 1 Mg Tab PO DAILY ANNITA Gabapentin 600 mg 10/23/20 21:00 10/23/20 21:27 Gabapentin 300 Mg Cap PO 600 mg TID ANNITA Administration Haloperidol Lactate 5 mg 10/23/20 21:21 Haloperidol Lactate 5 Mg/Ml Sdv IVPUSH Q4H PRN Agitation Potassium Chloride/Sodium Chloride 1,000 mls @ 125 mls/hr 10/23/20 19:13 10/23/20 19:52 Normal Saline With 20 Meq Kcl IV 125 mls/hr ASDIRECTED ANNITA Administration Lamotrigine 100 mg 10/24/20 09:00 Lamotrigine 100 Mg Tab PO QAM ANNITA Lamotrigine 100 mg 10/23/20 21:00 10/23/20 21:27 Lamotrigine 100 Mg Tab PO 100 mg BEDTIME ANNITA Administration Lamotrigine 25 mg 10/23/20 21:00 10/23/20 21:27 Lamotrigine 25 Mg Tab PO 25 mg BEDTIME ANNITA Administration Lorazepam 1 mg 10/23/20 19:13 Lorazepam 1 Mg Tab PO QID PRN Anxiety Lorazepam 0 mg 10/23/20 19:13 Lorazepam 1 Mg Tab PO ASDIRECTED ANNITA Protocol Lorazepam 0 mg 10/23/20 19:13 10/23/20 21:24 Lorazepam 2 Mg/Ml Sdv IV 3 mg ASDIRECTED ANNITA Administration Protocol Magnesium Hydroxide 30 ml 10/23/20 19:13 Magnesium Hydroxide 400 Mg/5 Ml Susp 30 Ml Cup PO Q12H PRN Constipation Melatonin 9 mg 10/23/20 21:00 10/23/20 21:27 Melatonin 3 Mg Tab PO 9 mg BEDTIME ANNITA Administration Metoprolol Succinate 25 mg 10/24/20 09:00 Metoprolol Succinate 25 Mg Tab.Er PO DAILY ANNITA Mometasone Furoate/Formoterol Fumar 2 puff 10/23/20 21:00 10/23/20 20:45 Formoterol/Mometasone 100-5 Mcg 8.8 Gm Inhaler IH Not Given BIDRT ANNITA Nicotine 14 mg 10/24/20 09:00 Nicotine 14 Mg/24 Hr Patch TRDERM DAILY ANNITA Non-Formulary Medication 8 mg 10/23/20 21:00 Cyproheptadine Hcl [Cyproheptadine Hcl] PO BID ANNITA Ondansetron HCl 4 mg 10/23/20 19:13 Ondansetron 4 Mg/2 Ml Sdv IV Q6H PRN Nausea/Vomiting Ondansetron HCl 4 mg 10/23/20 19:13 Ondansetron 4 Mg Tab.Dis PO Q6H PRN Nausea able to take PO Pantoprazole Sodium 40 mg 10/23/20 19:13 10/23/20 21:27 Pantoprazole 40 Mg Tab.Cr PO 40 mg BIDAC ANNITA Administration Pravastatin Sodium 20 mg 10/24/20 09:00 Pravastatin 20 Mg Tab PO DAILY ANNITA Quetiapine Fumarate 1,200 mg 10/23/20 21:00 10/23/20 21:27 Quetiapine 300 Mg Tab PO 1,200 mg BEDTIME ANNITA Administration Senna/Docusate Sodium 1 tab 10/23/20 19:13 Docusate Sodium/Sennosides 50-8.6 Mg Tab PO BID PRN Constipation Sodium Chloride 10 ml 10/23/20 15:11 10/23/20 15:30 Sodium Chloride 0.9% 10 Ml Syringe FLUSH 10 ml ASDIRECTED PRN Administration Keep Vein Open Thiamine HCl 100 mg 10/24/20 09:00 Thiamine 100 Mg Tab PO DAILY ANNITA Topiramate 25 mg 10/23/20 21:00 10/23/20 21:27 Topiramate 25 Mg Tab PO 25 mg BEDTIME ANNITA Administration Discontinued Medications Generic Name Dose Route Start Last Admin Trade Name Freq PRN Reason Stop Dose Admin Aspirin 324 mg 10/23/20 15:13 10/23/20 15:32 Aspirin 81 Mg Tab.Chew PO 10/23/20 15:14 324 mg ONETIME ONE Administration Al Hydroxide/Mg Hydroxide 15 0 ml 10/23/20 15:36 10/23/20 15:49 ml/ Lidocaine HCl 15 ml PO 10/23/20 15:37 30 ml ONETIME ONE Administration Famotidine 20 mg 10/23/20 15:36 10/23/20 15:45 Famotidine 20 Mg/2 Ml Sdv IVPUSH 10/23/20 15:37 20 mg ONETIME ONE Administration Multivitamins/Minerals 10 ml/ 1,017.2 mls @ 500 mls/hr 10/23/20 15:45 10/23/20 16:02 Thiamine HCl 100 mg/ Folic IV 500 mls/hr Acid 1 mg/ Magnesium Sulfate 3 ASDIRECTED ANNITA Administration gm/ Sodium Chloride Potassium Chloride 20 meq/ 112 mls @ 50 mls/hr 10/23/20 16:00 10/23/20 16:38 Lidocaine HCl 2 ml/ Sodium IV Not Given Chloride Q2H ANNITA Potassium Chloride Confirm 10/23/20 16:14 10/23/20 16:38 Kcl In Water 20 Meq/100 Ml Administered 10/23/20 16:15 Not Given Dose 200 mls @ as directed .ROUTE .STK-MED ONE Potassium Chloride 100 mls @ 50 mls/hr 10/23/20 16:30 10/23/20 19:51 Kcl In Water 20 Meq/100 Ml IV 10/23/20 20:29 50 mls/hr Q2H ANNITA Administration Magnesium Sulfate 2 gm/ Premix 50 mls @ 25 mls/hr 10/23/20 19:13 10/23/20 21:28 IV 10/23/20 21:12 25 mls/hr ONETIME ONE Administration Lidocaine HCl Confirm 10/23/20 16:15 10/23/20 16:38 Lidocaine 1% 5 Ml Sdv Administered 10/23/20 16:16 Not Given Dose 5 ml .ROUTE .STK-MED ONE Lidocaine HCl 2 ml 10/23/20 16:30 10/23/20 19:51 Lidocaine 1% 5 Ml Sdv .XX 10/23/20 18:31 2 ml Q2H ANNITA Administration Lorazepam 0.5 mg 10/23/20 16:48 10/23/20 16:57 Lorazepam 2 Mg/Ml Sdv IVPUSH 10/23/20 16:49 0.5 mg ONETIME ONE Administration Nicotine 21 mg 10/23/20 16:49 10/23/20 17:07 Nicotine 21 Mg/24 Hr Patch TRDERM 10/23/20 16:50 21 mg ONETIME ONE Administration Potassium Chloride 40 meq 10/23/20 17:49 10/23/20 18:27 Potassium Chloride 20 Meq Tab.Er PO 10/23/20 17:50 40 meq ONETIME ONE Administration - Radiology Interpretation Free Text/Narrative:: Chest x-ray wet read, reviewed, no acute findings. Noted implanted medical historian. Radiologist read pending. - Re-Assessments/Exams Free Text/Narrative Re-Assessment/Exam: 10/23/20 16:39 Patient presentation, assessment and current lab work reviewed with Dr. Torres. We will hydrate, provide IV potassium, recheck troponin and re-evaluate. 10/23/20 16:50 Discussed lab work, management with patient, we will admit for hypokalemia. Dr. Torres notified, he will be in to admit patient. Lorazepam and nicotine patch ordered. 10/23/20 17:09 Dr. Glover out of town, requests Dr. Torres to admit and care for patient. Departure - Departure Time of Disposition: 16:51 Disposition: Admitted As Inpatient 66 Condition: Fair Clinical Impression: Hypokalemia, SUYAPA (acute kidney injury), Dehydration, Alcohol abuse Sepsis Event Note (ED) - Evaluation Sepsis Screening Result: No Definite Risk - Focused Exam Vital Signs: Vital Signs Temp Pulse Resp BP Pulse Ox 10/23/20 18:28 92 22 H 125/76 10/23/20 17:26 93 16 123/75 97 10/23/20 16:26 97 15 115/83 95 10/23/20 15:57 104 H 17 115/70 96 10/23/20 15:26 36.3 C 107 H 15 102/72 98 10/23/20 15:01 36.3 C 112 H 18 105/72 97 - My Orders Last 24 Hours: My Active Orders 10/23/20 15:11 Sodium Chloride 0.9% [Saline Flush] 10 ml FLUSH ASDIRECTED PRN Saline Lock Insert [OM.PC] Routine EKG 12 Lead [EK] Routine 10/23/20 15:12 Chest 1V Frontal [CR] Stat - Assessment/Plan Last 24 Hours: My Active Orders 10/23/20 15:11 Sodium Chloride 0.9% [Saline Flush] 10 ml FLUSH ASDIRECTED PRN Saline Lock Insert [OM.PC] Routine EKG 12 Lead [EK] Routine 10/23/20 15:12 Chest 1V Frontal [CR] Stat Assessment:: Hypokalemia, SUYAPA (acute kidney injury), Dehydration, Alcohol abuse Plan: Dr. Torres in to admit patient for inpatient care with telemetry.
[2020-10-23] MEDS ORDERED: LORazepam 2 MG/ML SDV IVPUSH ONE (16:48)
[2020-10-23] MEDS ORDERED: Nicotine 21 MG/24 Hr Patch TRDERM ONE (16:49)
[2020-10-23] MEDS ORDERED: Potassium Chloride 20 MEQ Tab.ER PO ONE (17:49)
--- NOTE | 2020-10-23 18:00 | PCM.HP.2 ---
H&P History of Present Illness - General Date of Service: 10/23/20 Admit Problem/Dx: Admission Diagnosis/Problem Admission Diagnosis/Problem Acute kidney injury Source of Information: Patient, Family (son Damian ) History Limitations: Reports: Altered Mental Status (somewhat confused) - History of Present Illness Initial Comments - Free Text/Narative: CC: I kept passing out HPI: Brittney presents to the emergency room today after several episodes of syncope as well as generalized weakness. She reports for the last 3 days or so she has been feeling off. She has had several episodes of syncope with no preceding symptoms. She feels weak all over and has no energy. She is complaining of nearly constant achy chest pain in the middle of her chest. She describes this as moderate in severity. She has tried a variety of things including Maalox at home without any relief. Food does not make the pain any better or worse. She does not think it is getting any worse but it has not gotten any better. It does hurt when she presses on her chest. No fevers or chills. No nausea or vomiting. No change in bowel or bladder habits. She thinks that she drinks plenty of water but then says no most of my intake is coffee. She does admit that she has fallen off the wagon. She admits to drinking for the last 3 days but family thinks it has been longer than that. Parul urena says her last drink was 3 days ago but did still have a small amount of alcohol in her system today. Work-up in the emergency room revealed profound hypokalemia at 2.6 as well as acute kidney injury with a creatinine of 1.8. EKG had diffuse T wave inversions. Troponin was normal. Chest x-ray was clear. Potassium supplementation was initiated in the emergency room. She will be admitted for hydration and management of the low potassium and acute kidney injury. There is some concern that she may be in the early stages of alcohol withdrawal. Left Chest Pain Score (Numeric/FACES): 3 - Related Data Allergies/Adverse Reactions: Allergies Allergy/AdvReac Type Severity Reaction Status Date / Time Sulfa (Sulfonamide Allergy Hives Verified 10/23/20 15:16 Antibiotics) Home Medications: Home Meds Ferrous Sulfate, Dried [Slow Release Iron] 200 mg PO DAILY 10/01/17 [History] Gabapentin [Neurontin] 600 mg PO TID 10/01/17 [History] lamoTRIgine [Lamotrigine] 200 mg PO QAM 10/01/17 [History] Ascorbic Acid [Vitamin C] 500 mg PO DAILY 10/03/17 [History] Omeprazole 40 mg PO DAILY 02/19/18 [History] LORazepam [Ativan] 1 mg PO QID PRN 12/27/18 [History] Budesonide/Formoterol Fumarate [Budesonide-Formoterol 80-4.5] 2 puff IH BID PRN 02/05/20 [History] Calcium Carbonate [Calcium] 600 mg PO DAILY 02/05/20 [History] Cholecalciferol (Vitamin D3) [Vitamin D3] 2,000 unit PO DAILY 02/05/20 [History] Cyproheptadine HCl 8 mg PO BID 02/05/20 [History] Ibuprofen 800 mg PO TIDMEALS PRN 02/05/20 [History] Nitroglycerin [Nitrostat] 0.4 mg SL ASDIRECTED PRN 02/05/20 [History] Pravastatin Sodium 20 mg PO DAILY 02/05/20 [History] QUEtiapine [SEROquel] 1,200 mg PO BEDTIME 02/05/20 [History] Topiramate 25 mg PO BEDTIME 02/05/20 [History] Zinc 50 mg PO DAILY 02/05/20 [History] buPROPion [Wellbutrin SR] 150 mg PO DAILY 02/05/20 [History] lamoTRIgine [Lamotrigine] 250 mg PO BEDTIME 02/05/20 [History] Metoprolol Succinate 25 mg PO DAILY 03/28/20 [History] Vitamin E 200 units PO DAILY 03/31/20 [History] Past Medical History HEENT History: Reports: None Cardiovascular History: Reports: Angina, High Cholesterol, SOB on Exertion, Syncope, Other (See Below) Other Cardiovascular History: "small leak in heart pt states per Dr. Glover" Respiratory History: Reports: COPD, Sleep Apnea Gastrointestinal History: Reports: GERD Genitourinary History: Reports: None [employer] History: Reports: Endometriosis, Musculoskeletal History: Reports: Other (See Below) Other Musculoskeletal History: will be having carpal tunnel surgery 07/22/18 Psychiatric History: Reports: Addiction, Anxiety, Bipolar, Depression Other Psychiatric History: essential tremors Endocrine/Metabolic History: Reports: Hyperthyroidism Hematologic History: Reports: Anemia, Iron Deficiency - Infectious Disease History Infectious Disease History: Reports: Chicken Pox, Measles - Past Surgical History HEENT Surgical History: Reports: Adenoidectomy, Tonsillectomy Cardiovascular Surgical History: Reports: None Respiratory Surgical History: Reports: None GI Surgical History: Reports: Colonoscopy, EGD Female Surgical History: Reports: Section, Hysterectomy, Salpingo- Oophorectomy Endocrine Surgical History: Reports: None Musculoskeletal Surgical History: Reports: Carpal Tunnel Social & Family History - Family History Family Medical History: No Pertinent Family History - Tobacco Use Tobacco Use Status *Q: Current Every Day Tobacco User Years of Tobacco use: 32 Packs/Tins Daily: 0.5 - Caffeine Use Caffeine Use: Reports: Coffee - Alcohol Use Date of Last Drink: 10/20/20 - Recreational Drug Use Recreational Drug Use: No H&P Review of Systems - Review of Systems: Review Of Systems: See Below Free Text/Narrative: A complete 12 point review of systems was obtained. Pertinent positives and negatives are noted in the history of present illness. All other systems were reviewed and were negative except as noted. Exam - Exam Exam: See Below - Vital Signs Vital Signs: Last Vital Signs Temp 36.3 C 10/23/20 15:26 Pulse 97 10/23/20 16:26 Resp 15 10/23/20 16:26 BP 115/83 10/23/20 16:26 Pulse Ox 95 10/23/20 16:26 Weight: 63.503 kg - Exam Quality Assessment: No: Supplemental Oxygen General: Alert, Oriented, Cooperative, Mild Distress HEENT: Conjunctiva Clear. No: Mucosa Moist & [place] (dry), Scleral Icterus Neck: Supple, Trachea Midline. No: Lymphadenopathy Lungs: Clear to Auscultation, Normal Respiratory Effort Cardiovascular: Regular Rate, Regular Rhythm, Other (Chest is tender to palpation over the sternum and this does reproduce her chest pain). No: Systolic Murmur GI/Abdominal Exam: Normal Bowel Sounds, Soft, Non-Tender, No Distention Back Exam: Normal Inspection, Full Range of Motion Extremities: No Pedal Edema. No: Increased Warmth Peripheral Pulses: 2+: Dorsalis Pedis (L), Dorsalis Pedis (R) Skin: Warm, Dry. No: Ecchymosis Neuro Extensive - Mental Status: Alert, Nl Response to Commands Neuro Extensive - Motor, Sensory, Reflexes: Dysarthria (Speech is slightly slurred). No: Facial Palsy (R), Facial palsy (L), Abnormal Motor, Tremor Psychiatric: Alert, Normal Affect. No: Agitated - Patient Data Lab Results Last 24 hrs: Laboratory Results - last 24 hr 10/23/20 10/23/20 10/23/20 Range/Units 15:24 15:24 15:24 WBC 7.8 (4.5-11.0) K/uL RBC 3.77 (3.30-5.50) M/uL Hgb 12.3 (12.0-15.0) g/dL Hct 36.5 (36.0-48.0) % MCV 97 (80-98) fL MCH 33 H (27-31) pg MCHC 34 (32-36) % Plt Count 399 (150-400) K/uL Neut % (Auto) 65.4 (36-66) % Lymph % (Auto) 19.1 L (24-44) % [place] % (Auto) 12.6 H (2-6) % Eos % (Auto) 2.4 (2-4) % Baso % (Auto) 0.5 (0-1) % PT 10.6 (9.5-12.0) sec INR 0.97 (0.80-1.20) APTT 24.6 L (27.0-36.0) sec Sodium 136 L (140-148) mmol/L Potassium 2.6 L* (3.6-5.2) mmol/L Chloride 91 L (100-108) mmol/L Carbon Dioxide 30 (21-32) mmol/L Anion Gap 17.6 H (5.0-14.0) mmol/L BUN 26 H D (7-18) mg/dL Creatinine 1.8 H (0.6-1.0) mg/dL Est Cr Clr Drug Dosing 33.65 mL/min Estimated GFR (MDRD) 30 L (>60) Glucose 126 H (74-106) mg/dL Calcium 9.3 (8.5-10.1) mg/dL Magnesium (1.8-2.4) mg/dL Total Bilirubin 0.4 (0.2-1.0) mg/dL AST 17 (15-37) U/L ALT 18 (12-78) U/L Alkaline Phosphatase 94 (46-116) U/L Troponin I < 0.017 (0.000-0.056) ng/mL Total Protein 7.5 (6.4-8.2) g/dL Albumin 4.0 (3.4-5.0) g/dL Globulin 3.5 (2.3-3.5) g/dL Albumin/Globulin Ratio 1.1 L (1.2-2.2) Ethyl Alcohol mg/dL 10/23/20 10/23/20 Range/Units 15:40 15:40 WBC (4.5-11.0) K/uL RBC (3.30-5.50) M/uL Hgb (12.0-15.0) g/dL Hct (36.0-48.0) % MCV (80-98) fL MCH (27-31) pg MCHC (32-36) % Plt Count (150-400) K/uL Neut % (Auto) (36-66) % Lymph % (Auto) (24-44) % [place] % (Auto) (2-6) % Eos % (Auto) (2-4) % Baso % (Auto) (0-1) % PT (9.5-12.0) sec INR (0.80-1.20) APTT (27.0-36.0) sec Sodium (140-148) mmol/L Potassium (3.6-5.2) mmol/L Chloride (100-108) mmol/L Carbon Dioxide (21-32) mmol/L Anion Gap (5.0-14.0) mmol/L BUN (7-18) mg/dL Creatinine (0.6-1.0) mg/dL Est Cr Clr Drug Dosing mL/min Estimated GFR (MDRD) (>60) Glucose (74-106) mg/dL Calcium (8.5-10.1) mg/dL Magnesium 1.8 (1.8-2.4) mg/dL Total Bilirubin (0.2-1.0) mg/dL AST (15-37) U/L ALT (12-78) U/L Alkaline Phosphatase (46-116) U/L Troponin I (0.000-0.056) ng/mL Total Protein (6.4-8.2) g/dL Albumin (3.4-5.0) g/dL Globulin (2.3-3.5) g/dL Albumin/Globulin Ratio (1.2-2.2) Ethyl Alcohol 5 mg/dL Result Diagrams: 10/23/20 15:24 10/23/20 15:24 Imaging Impressions Last 24 hrs: Chest x-ray-image personally reviewed-lungs are clear with no mass, infiltrate or effusion. Heart size is normal. #1 Interpretation EKG Date: 10/23/20 Rhythm: NSR Rate (Beats/Min): 106 [place]: Normal P-Wave: Present QRS: Normal ST-T: Other (Diffuse T wave inversions) QT: Normal Comparison: NA - No Prior EKG EKG Interpretation Comments: This EKG image was personally reviewed Sepsis Event Note - Evaluation Sepsis Screening Result: No Definite Risk - Focused Exam Vital Signs: Vital Signs Temp Pulse Resp BP Pulse Ox 10/23/20 16:26 97 15 115/83 95 10/23/20 15:57 104 H 17 115/70 96 10/23/20 15:26 36.3 C 107 H 15 102/72 98 10/23/20 15:01 36.3 C 112 H 18 105/72 97 *Q Meaningful Use (ADM) - VTE Risk Assess *Q Each Risk Factor Represents 1 Point: Age 41 - 59 years Total Score 1 Point Risk Factors: 1 Each Risk Factor Represents 2 Points: None Total Score 2 Point Risk Factors: 0 Each Risk Factor Represents 3 Points: None Total Score 3 Point Risk Factors: 0 Each Risk Factor Represents 5 Points: None Total Score 5 Point Risk Factors: 0 Venous Thromboembolism Risk Factor Score *Q: 1 - Problem List (1) SUYAPA (acute kidney injury) SNOMED Code(s): 41054291, 86185626 ICD Code: N17.9 - ACUTE KIDNEY FAILURE, UNSPECIFIED Status: Acute Current Visit: Yes (2) Dehydration SNOMED Code(s): 73646526 ICD Code: E86.0 - DEHYDRATION Status: Acute Current Visit: Yes (3) Hypokalemia SNOMED Code(s): 41578926 ICD Code: E87.6 - HYPOKALEMIA Status: Acute Current Visit: Yes (4) Alcohol abuse SNOMED Code(s): 38941012 ICD Code: F10.10 - ALCOHOL ABUSE, UNCOMPLICATED Status: Acute Current Visit: Yes (5) Tobacco dependence SNOMED Code(s): 65941450 ICD Code: F17.200 - NICOTINE DEPENDENCE, UNSPECIFIED, UNCOMPLICATED Status: Chronic Current Visit: Yes (6) Bipolar disorder SNOMED Code(s): 38648335 ICD Code: F31.9 - BIPOLAR DISORDER, UNSPECIFIED Status: Chronic Current Visit: Yes Qualifiers: Active/Remission status: remission status unspecified Qualified Code(s): F31.9 - Bipolar disorder, unspecified Problem List Initiated/Reviewed/Updated: Yes Orders Last 24hrs: Active Orders 24 hr Category Date Time Status Patient Status Manage Transfer [TRANSFER] Routine ADT 10/23/20 17:51 Ordered EKG Documentation Completion [RC] ASDIRECTED Care 10/23/20 15:12 Active Chest 1V Frontal [CR] Stat Exams 10/23/20 15:12 Taken Lidocaine 1% [Xylocaine-MPF 1%] Med 10/23/20 16:30 Active 2 ml .XX Q2H MVI, Adult with Vitamin K [Infuvite Adult] 10 ml Med 10/23/20 15:45 Active Thiamine [Vitamin B-1] 100 mg Folic Acid 1 mg Magnesium Sulfate [Magnesium Sulfate 50%] 3 gm Sodium Chloride 0.9% [Normal Saline] 1,000 ml IV ASDIRECTED Potassium Chloride [KCL in Water 20 MEQ/100 ML] 100 ml Med 10/23/20 16:30 Active IV Q2H Sodium Chloride 0.9% [Saline Flush] Med 10/23/20 15:11 Active 10 ml FLUSH ASDIRECTED PRN Saline Lock Insert [OM.PC] Routine Oth 10/23/20 15:11 Ordered Resuscitation Status Routine Resus Stat 10/23/20 17:54 Ordered EKG 12 Lead [EK] Routine Ther 10/23/20 15:11 Ordered Medication Orders Multivitamins/Minerals 10 ml/Thiamine HCl 100 mg/ Folic Acid 1 mg/ Magnesium Sulfate 3 gm/ Sodium Chloride 1,017.2 mls @ 500 mls/hr IV ASDIRECTED ANNITA Last Admin: 10/23/20 16:02 Dose: 500 mls/hr Documented by: [email or web address] Potassium Chloride (Kcl In Water 20 Meq/100 Ml) 100 mls @ 50 mls/hr IV Q2H ANNITA Stop: 10/23/20 20:29 Last Admin: 10/23/20 16:35 Dose: 50 mls/hr Documented by: JAZMINE Lidocaine HCl (Lidocaine 1% 5 Ml Sdv) 2 ml .XX Q2H ANNITA Stop: 10/23/20 18:31 Last Admin: 10/23/20 16:35 Dose: 2 ml Documented by: JAZMINE Sodium Chloride (Sodium Chloride 0.9% 10 Ml Syringe) 10 ml FLUSH ASDIRECTED PRN PRN Reason: Keep Vein Open Last Admin: 10/23/20 15:30 Dose: 10 ml Documented by: JAZMINE Assessment/Plan Comment:: ASSESSMENT AND PLAN - Acute kidney injury-probably secondary to dehydration/volume depletion. Most of her intake has been caffeine or alcohol. I would anticipate this should improve with hydration over the next couple of days. -IV fluids -Labs in the morning Profound hypokalemia-significant reduction in potassium probably related to poor intake as well as losses with alcohol use. This could explain some of her fatigue and the EKG changes. She has received/is in the process of receiving 80 mEq in the emergency room. -Recheck later tonight, replace as indicated -IV fluids with potassium -Magnesium supplementation tonight -Recheck again in the morning Alcohol abuse-patient reports recent binge drinking but I think she is unde rreporting the quantity and duration of her use. Family has the same concern. She appears to be hallucinating and reaching for things and speech is slightly slurred raising concern for early alcohol withdrawal. -Cardiac monitoring -Banana bag given in the emergency room -Supplement thiamine and folate -CIWA protocol with lorazepam -Transition to ICU status if alcohol withdrawal progresses -Continue gabapentin Noncardiac chest pain-tender to palpation over the anterior chest. She may have some costochondritis. She is a smoker and has been abusing alcohol and may have some gastritis. -PPI -Acetaminophen for pain Bipolar disorder-does not appear to be decompensated at this time. -Continue home medications with renal dosing for lamotrigine (reduced by 50%) Tobacco dependence-patient will need some counseling about the dangers of smoking as well as cessation information when she is more clear. Maintenance issues - -DVT prophylaxis-mechanical -GI prophylaxis-PPI -Nutrition-regular -Rivas catheter-not indicated CODE STATUS -full code Admission justification -this patient will be admitted for inpatient services and is medically appropriate meeting medical necessity for inpatient admission as outlined in my documentation. I reasonably expect the patient will require inpatient services that span a period time over 2 midnights. I reasonably expect this patient to be discharged or transferred within 96 hours after admission to the [facility]. Disposition -I anticipate discharge home after the hospital stay Primary care physician -Dr. Bar Torres M.D. - Mortality Measure Prognosis:: Good
[2020-10-23] MEDS ORDERED: Magnesium Sulfate/Water 2 GM in Premix Bag 1 BAG IV ONE (19:13)
[2020-10-23] MEDS ORDERED: Magnesium Hydroxide 400 MG/5 ML Susp 30 ML Cup PO PRN (19:13)
[2020-10-23] MEDS ORDERED: Ondansetron 4 MG/2 ML SDV IV PRN (19:13)
[2020-10-23] MEDS ORDERED: Ondansetron 4 MG Tab.DIS PO PRN (19:13)
[2020-10-23] MEDS ORDERED: Acetaminophen 325 MG Tab PO PRN (19:13)
[2020-10-23] MEDS ORDERED: Albuterol 0.083% 2.5 MG/3 ML Neb Soln NEB PRN (19:13)
[2020-10-23] MEDS: NS + KCl 20mEq/L 1,000 ML IV SCH (19:52)
[2020-10-23] MEDS: LORazepam 2 MG/ML SDV IV SCH ×3 (19:57→21:24)
[2020-10-23] MEDS: lamoTRIgine 25 MG Tab PO SCH ×3 (20:34→21:27)
[2020-10-23] MEDS: Pantoprazole 40 MG Tab.CR PO SCH ×3 (20:34→21:27)
[2020-10-23] MEDS: Melatonin 3 MG Tab PO SCH ×3 (20:34→21:27)
[2020-10-23] MEDS: Topiramate 25 MG Tab PO SCH ×3 (20:34→21:27)
[2020-10-23] MEDS: lamoTRIgine 100 MG Tab PO SCH ×3 (20:34→21:27)
[2020-10-23] MEDS: Gabapentin 300 MG Cap PO SCH ×3 (20:34→21:27)
[2020-10-23] MEDS: Formoterol/Mometasone 100-5 MCG 8.8 GM Inhaler IH SCH (20:45)
[2020-10-23] MEDS ORDERED: Haloperidol Lactate 5 MG/ML SDV IVPUSH PRN (21:21)
[2020-10-24] MEDS: Formoterol/Mometasone 100-5 MCG 8.8 GM Inhaler IH SCH ×2 (07:14→21:51)
[2020-10-24] MEDS: LORazepam 2 MG/ML SDV IV SCH (07:26)
[2020-10-24] MEDS: NS + KCl 20mEq/L 1,000 ML IV SCH (07:55)
[2020-10-24] MEDS ORDERED: Potassium Chloride 20 MEQ Tab.ER PO ONE ×2 (09:00→14:00)
--- NOTE | 2020-10-24 12:24 | PCM.PN ---
- General Info Date of Service: 10/24/20 Subjective Update: Ms. Moreau has continued to experience alcohol withdrawal delirium and has required regular use of lorazepam. When seen this morning she was very lethargic and sleeping, unable to provide meaningful information concerning symptoms or review of systems. - Patient Data Vitals - Most Recent: Last Vital Signs Temp 98.0 F 10/24/20 07:00 Pulse 98 10/24/20 11:00 Resp 15 10/24/20 11:00 BP 112/63 10/24/20 11:00 Pulse Ox 98 10/24/20 11:00 Weight - Most Recent: 141 lb 4.814 oz Lab Results Last 24 Hours: Laboratory Results - last 24 hr 10/23/20 10/23/20 10/23/20 Range/Units 15:24 15:24 15:24 WBC 7.8 (4.5-11.0) K/uL RBC 3.77 (3.30-5.50) M/uL Hgb 12.3 (12.0-15.0) g/dL Hct 36.5 (36.0-48.0) % MCV 97 (80-98) fL MCH 33 H (27-31) pg MCHC 34 (32-36) % Plt Count 399 (150-400) K/uL Neut % (Auto) 65.4 (36-66) % Lymph % (Auto) 19.1 L (24-44) % [place] % (Auto) 12.6 H (2-6) % Eos % (Auto) 2.4 (2-4) % Baso % (Auto) 0.5 (0-1) % PT 10.6 (9.5-12.0) sec INR 0.97 (0.80-1.20) APTT 24.6 L (27.0-36.0) sec Sodium 136 L (140-148) mmol/L Potassium 2.6 L* (3.6-5.2) mmol/L Chloride 91 L (100-108) mmol/L Carbon Dioxide 30 (21-32) mmol/L Anion Gap 17.6 H (5.0-14.0) mmol/L BUN 26 H D (7-18) mg/dL Creatinine 1.8 H (0.6-1.0) mg/dL Est Cr Clr Drug Dosing 33.65 mL/min Estimated GFR (MDRD) 30 L (>60) Glucose 126 H (74-106) mg/dL Calcium 9.3 (8.5-10.1) mg/dL Magnesium (1.8-2.4) mg/dL Total Bilirubin 0.4 (0.2-1.0) mg/dL AST 17 (15-37) U/L ALT 18 (12-78) U/L Alkaline Phosphatase 94 (46-116) U/L Ammonia (11-32) umol/L Troponin I < 0.017 (0.000-0.056) ng/mL Total Protein 7.5 (6.4-8.2) g/dL Albumin 4.0 (3.4-5.0) g/dL Globulin 3.5 (2.3-3.5) g/dL Albumin/Globulin Ratio 1.1 L (1.2-2.2) Ethyl Alcohol mg/dL 10/23/20 10/23/20 10/23/20 Range/Units 15:40 15:40 21:59 WBC (4.5-11.0) K/uL RBC (3.30-5.50) M/uL Hgb (12.0-15.0) g/dL Hct (36.0-48.0) % MCV (80-98) fL MCH (27-31) pg MCHC (32-36) % Plt Count (150-400) K/uL Neut % (Auto) (36-66) % Lymph % (Auto) (24-44) % [place] % (Auto) (2-6) % Eos % (Auto) (2-4) % Baso % (Auto) (0-1) % PT (9.5-12.0) sec INR (0.80-1.20) APTT (27.0-36.0) sec Sodium (140-148) mmol/L Potassium 3.8 (3.6-5.2) mmol/L Chloride (100-108) mmol/L Carbon Dioxide (21-32) mmol/L Anion Gap (5.0-14.0) mmol/L BUN (7-18) mg/dL Creatinine (0.6-1.0) mg/dL Est Cr Clr Drug Dosing mL/min Estimated GFR (MDRD) (>60) Glucose (74-106) mg/dL Calcium (8.5-10.1) mg/dL Magnesium 1.8 (1.8-2.4) mg/dL Total Bilirubin (0.2-1.0) mg/dL AST (15-37) U/L ALT (12-78) U/L Alkaline Phosphatase (46-116) U/L Ammonia (11-32) umol/L Troponin I < 0.017 (0.000-0.056) ng/mL Total Protein (6.4-8.2) g/dL Albumin (3.4-5.0) g/dL Globulin (2.3-3.5) g/dL Albumin/Globulin Ratio (1.2-2.2) Ethyl Alcohol 5 mg/dL 10/24/20 10/24/20 10/24/20 Range/Units 05:17 05:17 05:17 WBC 5.6 (4.5-11.0) K/uL RBC 3.01 L (3.30-5.50) M/uL Hgb 9.7 L D (12.0-15.0) g/dL Hct 29.8 L (36.0-48.0) % MCV 99 H (80-98) fL MCH 32 H (27-31) pg MCHC 33 (32-36) % Plt Count 316 (150-400) K/uL Neut % (Auto) (36-66) % Lymph % (Auto) (24-44) % [place] % (Auto) (2-6) % Eos % (Auto) (2-4) % Baso % (Auto) (0-1) % PT (9.5-12.0) sec INR (0.80-1.20) APTT (27.0-36.0) sec Sodium 141 (140-148) mmol/L Potassium 3.5 L (3.6-5.2) mmol/L Chloride 101 (100-108) mmol/L Carbon Dioxide 30 (21-32) mmol/L Anion Gap 13.5 (5.0-14.0) mmol/L BUN 21 H (7-18) mg/dL Creatinine 1.3 H (0.6-1.0) mg/dL Est Cr Clr Drug Dosing 46.51 mL/min Estimated GFR (MDRD) 43 L (>60) Glucose 107 H (74-106) mg/dL Calcium 8.5 (8.5-10.1) mg/dL Magnesium (1.8-2.4) mg/dL Total Bilirubin 0.3 (0.2-1.0) mg/dL AST 11 L (15-37) U/L ALT 14 (12-78) U/L Alkaline Phosphatase 71 (46-116) U/L Ammonia < 11 L (11-32) umol/L Troponin I (0.000-0.056) ng/mL Total Protein 5.7 L (6.4-8.2) g/dL Albumin 3.1 L (3.4-5.0) g/dL Globulin 2.6 (2.3-3.5) g/dL Albumin/Globulin Ratio 1.2 (1.2-2.2) Ethyl Alcohol mg/dL Med Orders - Current: Current Medications Acetaminophen (Acetaminophen 325 Mg Tab) 650 mg PO Q4H PRN PRN Reason: Pain (Mild 1-3)/fever Albuterol (Albuterol 0.083% 2.5 Mg/3 Ml Neb Soln) 2.5 mg NEB Q4H PRN PRN Reason: Shortness Of Breath/wheezing Bupropion HCl (Bupropion 150 Mg Tab.Sr) 150 mg PO DAILY [facility] Folic Acid (Folic Acid 1 Mg Tab) 1 mg PO DAILY [facility] Gabapentin (Gabapentin 300 Mg Cap) 600 mg PO TID [facility] Last Admin: 10/23/20 21:27 Dose: 600 mg Documented by: Haloperidol Lactate (Haloperidol Lactate 5 Mg/Ml Sdv) 5 mg IVPUSH Q4H PRN PRN Reason: Agitation Lamotrigine (Lamotrigine 100 Mg Tab) 100 mg PO QAM ANNITA Lamotrigine (Lamotrigine 100 Mg Tab) 100 mg PO BEDTIME [facility] Last Admin: 10/23/20 21:27 Dose: 100 mg Documented by: Lamotrigine (Lamotrigine 25 Mg Tab) 25 mg PO BEDTIME [facility] Last Admin: 10/23/20 21:27 Dose: 25 mg Documented by: Lorazepam (Lorazepam 1 Mg Tab) 1 mg PO QID PRN PRN Reason: Anxiety Lorazepam (Lorazepam 1 Mg Tab) 0 mg PO ASDIRECTED [facility]; Protocol Lorazepam (Lorazepam 2 Mg/Ml Sdv) 0 mg IV ASDIRECTED [facility]; Protocol Last Admin: 10/24/20 07:26 Dose: 2 mg Documented by: Magnesium Hydroxide (Magnesium Hydroxide 400 Mg/5 Ml Susp 30 Ml Cup) 30 ml PO Q12H PRN PRN Reason: Constipation Melatonin (Melatonin 3 Mg Tab) 9 mg PO BEDTIME [facility] Last Admin: 10/23/20 21:27 Dose: 9 mg Documented by: Metoprolol Succinate (Metoprolol Succinate 25 Mg Tab.Er) 25 mg PO DAILY [facility] Mometasone Furoate/Formoterol Fumar (Formoterol/Mometasone 100-5 Mcg 8.8 Gm Inhaler) 2 puff IH BIDRT [facility] Last Admin: 10/24/20 07:14 Dose: 2 puff Documented by: Nicotine (Nicotine 14 Mg/24 Hr Patch) 14 mg TRDERM DAILY [facility] Non-Formulary Medication (Cyproheptadine Hcl [Cyproheptadine Hcl]) 8 mg PO BID [facility] Ondansetron HCl (Ondansetron 4 Mg/2 Ml Sdv) 4 mg IV Q6H PRN PRN Reason: Nausea/Vomiting Ondansetron HCl (Ondansetron 4 Mg Tab.Dis) 4 mg PO Q6H PRN PRN Reason: Nausea able to take PO Pantoprazole Sodium (Pantoprazole 40 Mg Tab.Cr) 40 mg PO BIDAC [facility] Last Admin: 10/23/20 21:27 Dose: 40 mg Documented by: Pravastatin Sodium (Pravastatin 20 Mg Tab) 20 mg PO DAILY [facility] Quetiapine Fumarate (Quetiapine 300 Mg Tab) 1,200 mg PO BEDTIME [facility] Last Admin: 10/23/20 21:27 Dose: 1,200 mg Documented by: Senna/Docusate Sodium (Docusate Sodium/Sennosides 50-8.6 Mg Tab) 1 tab PO BID PRN PRN Reason: Constipation Sodium Chloride (Sodium Chloride 0.9% 10 Ml Syringe) 10 ml FLUSH ASDIRECTED PRN PRN Reason: Keep Vein Open Last Admin: 10/23/20 15:30 Dose: 10 ml Documented by: Thiamine HCl (Thiamine 100 Mg Tab) 100 mg PO DAILY [facility] Topiramate (Topiramate 25 Mg Tab) 25 mg PO BEDTIME [facility] Last Admin: 10/23/20 21:27 Dose: 25 mg Documented by: Discontinued Medications Aspirin (Aspirin 81 Mg Tab.Chew) 324 mg PO ONETIME ONE Stop: 10/23/20 15:14 Last Admin: 10/23/20 15:32 Dose: 324 mg Documented by: Al Hydroxide/Mg Hydroxide 15 (ml/ Lidocaine HCl 15 ml) 0 ml PO ONETIME ONE Stop: 10/23/20 15:37 Last Admin: 10/23/20 15:49 Dose: 30 ml Documented by: Famotidine (Famotidine 20 Mg/2 Ml Sdv) 20 mg IVPUSH ONETIME ONE Stop: 10/23/20 15:37 Last Admin: 10/23/20 15:45 Dose: 20 mg Documented by: Multivitamins/Minerals 10 ml/Thiamine HCl 100 mg/ Folic Acid 1 mg/ Magnesium Sulfate 3 gm/ Sodium Chloride 1,017.2 mls @ 500 mls/hr IV ASDIRECTED [facility] Last Admin: 10/23/20 16:02 Dose: 500 mls/hr Documented by: Potassium Chloride 20 meq/Lidocaine HCl 2 ml/ Sodium Chloride 112 mls @ 50 mls/hr IV Q2H [facility] Last Admin: 10/23/20 16:38 Dose: Not Given Documented by: Potassium Chloride (Kcl In Water 20 Meq/100 Ml) Confirm Administered Dose 200 mls @ as directed .ROUTE .STK-MED ONE Stop: 10/23/20 16:15 Last Admin: 10/23/20 16:38 Dose: Not Given Documented by: Potassium Chloride (Kcl In Water 20 Meq/100 Ml) 100 mls @ 50 mls/hr IV Q2H [facility] Stop: 10/23/20 20:29 Last Admin: 10/23/20 19:51 Dose: 50 mls/hr Documented by: Potassium Chloride/Sodium Chloride (Normal Saline With 20 Meq Kcl) 1,000 mls @ 125 mls/hr IV ASDIRECTED [facility] Last Admin: 10/24/20 07:55 Dose: 125 mls/hr Documented by: Magnesium Sulfate 2 gm/ Premix 50 mls @ 25 mls/hr IV ONETIME ONE Stop: 10/23/20 21:12 Last Admin: 10/23/20 21:28 Dose: 25 mls/hr Documented by: Lidocaine HCl (Lidocaine 1% 5 Ml Sdv) Confirm Administered Dose 5 ml .ROUTE .STK-MED ONE Stop: 10/23/20 16:16 Last Admin: 10/23/20 16:38 Dose: Not Given Documented by: Lidocaine HCl (Lidocaine 1% 5 Ml Sdv) 2 ml .XX Q2H ANNITA Stop: 10/23/20 18:31 Last Admin: 10/23/20 19:51 Dose: 2 ml Documented by: Lorazepam (Lorazepam 2 Mg/Ml Sdv) 0.5 mg IVPUSH ONETIME ONE Stop: 10/23/20 16:49 Last Admin: 10/23/20 16:57 Dose: 0.5 mg Documented by: Nicotine (Nicotine 21 Mg/24 Hr Patch) 21 mg TRDERM ONETIME ONE Stop: 10/23/20 16:50 Last Admin: 10/23/20 17:07 Dose: 21 mg Documented by: Potassium Chloride (Potassium Chloride 20 Meq Tab.Er) 40 meq PO ONETIME ONE Stop: 10/23/20 17:50 Last Admin: 10/23/20 18:27 Dose: 40 meq Documented by: Potassium Chloride (Potassium Chloride 20 Meq Tab.Er) 40 meq PO ONETIME ONE Stop: 10/24/20 09:01 - Exam General: Sedated, Lethargic Lungs: Clear to Auscultation, Normal Respiratory Effort Cardiovascular: Regular Rate, Regular Rhythm, No Murmurs GI/Abdominal Exam: Soft, Non-Tender, No Organomegaly, No Distention Extremities: Non-Tender, No Pedal Edema - Patient Data Lab Results Last 24 hrs: Laboratory Results - last 24 hr 10/23/20 10/23/20 10/23/20 Range/Units 15:24 15:24 15:24 WBC 7.8 (4.5-11.0) K/uL RBC 3.77 (3.30-5.50) M/uL Hgb 12.3 (12.0-15.0) g/dL Hct 36.5 (36.0-48.0) % MCV 97 (80-98) fL MCH 33 H (27-31) pg MCHC 34 (32-36) % Plt Count 399 (150-400) K/uL Neut % (Auto) 65.4 (36-66) % Lymph % (Auto) 19.1 L (24-44) % [place] % (Auto) 12.6 H (2-6) % Eos % (Auto) 2.4 (2-4) % Baso % (Auto) 0.5 (0-1) % PT 10.6 (9.5-12.0) sec INR 0.97 (0.80-1.20) APTT 24.6 L (27.0-36.0) sec Sodium 136 L (140-148) mmol/L Potassium 2.6 L* (3.6-5.2) mmol/L Chloride 91 L (100-108) mmol/L Carbon Dioxide 30 (21-32) mmol/L Anion Gap 17.6 H (5.0-14.0) mmol/L BUN 26 H D (7-18) mg/dL Creatinine 1.8 H (0.6-1.0) mg/dL Est Cr Clr Drug Dosing 33.65 mL/min Estimated GFR (MDRD) 30 L (>60) Glucose 126 H (74-106) mg/dL Calcium 9.3 (8.5-10.1) mg/dL Magnesium (1.8-2.4) mg/dL Total Bilirubin 0.4 (0.2-1.0) mg/dL AST 17 (15-37) U/L ALT 18 (12-78) U/L Alkaline Phosphatase 94 (46-116) U/L Ammonia (11-32) umol/L Troponin I < 0.017 (0.000-0.056) ng/mL Total Protein 7.5 (6.4-8.2) g/dL Albumin 4.0 (3.4-5.0) g/dL Globulin 3.5 (2.3-3.5) g/dL Albumin/Globulin Ratio 1.1 L (1.2-2.2) Ethyl Alcohol mg/dL 10/23/20 10/23/20 10/23/20 Range/Units 15:40 15:40 21:59 WBC (4.5-11.0) K/uL RBC (3.30-5.50) M/uL Hgb (12.0-15.0) g/dL Hct (36.0-48.0) % MCV (80-98) fL MCH (27-31) pg MCHC (32-36) % Plt Count (150-400) K/uL Neut % (Auto) (36-66) % Lymph % (Auto) (24-44) % [place] % (Auto) (2-6) % Eos % (Auto) (2-4) % Baso % (Auto) (0-1) % PT (9.5-12.0) sec INR (0.80-1.20) APTT (27.0-36.0) sec Sodium (140-148) mmol/L Potassium 3.8 (3.6-5.2) mmol/L Chloride (100-108) mmol/L Carbon Dioxide (21-32) mmol/L Anion Gap (5.0-14.0) mmol/L BUN (7-18) mg/dL Creatinine (0.6-1.0) mg/dL Est Cr Clr Drug Dosing mL/min Estimated GFR (MDRD) (>60) Glucose (74-106) mg/dL Calcium (8.5-10.1) mg/dL Magnesium 1.8 (1.8-2.4) mg/dL Total Bilirubin (0.2-1.0) mg/dL AST (15-37) U/L ALT (12-78) U/L Alkaline Phosphatase (46-116) U/L Ammonia (11-32) umol/L Troponin I < 0.017 (0.000-0.056) ng/mL Total Protein (6.4-8.2) g/dL Albumin (3.4-5.0) g/dL Globulin (2.3-3.5) g/dL Albumin/Globulin Ratio (1.2-2.2) Ethyl Alcohol 5 mg/dL 10/24/20 10/24/20 10/24/20 Range/Units 05:17 05:17 05:17 WBC 5.6 (4.5-11.0) K/uL RBC 3.01 L (3.30-5.50) M/uL Hgb 9.7 L D (12.0-15.0) g/dL Hct 29.8 L (36.0-48.0) % MCV 99 H (80-98) fL MCH 32 H (27-31) pg MCHC 33 (32-36) % Plt Count 316 (150-400) K/uL Neut % (Auto) (36-66) % Lymph % (Auto) (24-44) % [place] % (Auto) (2-6) % Eos % (Auto) (2-4) % Baso % (Auto) (0-1) % PT (9.5-12.0) sec INR (0.80-1.20) APTT (27.0-36.0) sec Sodium 141 (140-148) mmol/L Potassium 3.5 L (3.6-5.2) mmol/L Chloride 101 (100-108) mmol/L Carbon Dioxide 30 (21-32) mmol/L Anion Gap 13.5 (5.0-14.0) mmol/L BUN 21 H (7-18) mg/dL Creatinine 1.3 H (0.6-1.0) mg/dL Est Cr Clr Drug Dosing 46.51 mL/min Estimated GFR (MDRD) 43 L (>60) Glucose 107 H (74-106) mg/dL Calcium 8.5 (8.5-10.1) mg/dL Magnesium (1.8-2.4) mg/dL Total Bilirubin 0.3 (0.2-1.0) mg/dL AST 11 L (15-37) U/L ALT 14 (12-78) U/L Alkaline Phosphatase 71 (46-116) U/L Ammonia < 11 L (11-32) umol/L Troponin I (0.000-0.056) ng/mL Total Protein 5.7 L (6.4-8.2) g/dL Albumin 3.1 L (3.4-5.0) g/dL Globulin 2.6 (2.3-3.5) g/dL Albumin/Globulin Ratio 1.2 (1.2-2.2) Ethyl Alcohol mg/dL Result Diagrams: 10/24/20 05:17 10/24/20 05:17 Sepsis Event Note - Evaluation Sepsis Screening Result: No Definite Risk - Focused Exam Vital Signs: Vital Signs Temp Pulse Resp BP Pulse Ox 10/24/20 11:00 98 15 112/63 98 10/24/20 10:00 88 13 102/53 L 98 10/24/20 09:00 92 15 121/71 94 L 10/24/20 08:00 92 15 111/63 97 10/24/20 07:00 98.0 F 94 14 128/66 97 10/24/20 06:00 94 16 118/62 93 L 05/24/21 05:00 94 15 121/60 97 10/24/20 04:00 97.7 F 94 15 117/58 L 97 10/24/20 03:00 94 16 119/58 L 97 10/24/20 01:59 91 14 111/58 L 96 10/24/20 01:00 90 15 111/58 L 96 - Problem List Review Problem List Initiated/Reviewed/Updated: Yes - My Orders Last 24 Hours: My Active Orders 10/24/20 12:30 Sodium Chloride 0.9% @ 50 MLS/HR(1000ml) Sodium Chloride 0.9% [Normal Saline] 1,000 ml IV ASDIRECTED 10/25/20 05:00 BASIC METABOLIC PANEL,BMP [CHEM] Timed CBC WITH AUTO DIFF [HEME] Timed - Plan Plan:: ASSESSMENT AND PLAN - Acute kidney injury-probably secondary to dehydration/volume depletion. Renal function has improved with hydration -IV fluids -Labs in the morning Profound hypokalemia-significant reduction in potassium probably related to poor intake as well as losses with alcohol use. Potassium level improved following replacement -Recheck again in the morning Alcohol abuse/alcohol withdrawal delirium-patient reports recent binge drinking but I think she is underreporting the quantity and duration of her use. Family has the same concern. She has continued to show evidence of hallucinations -Cardiac monitoring -Banana bag given in the emergency room -Supplement thiamine and folate -CIWA protocol with lorazepam -Transition to ICU status if alcohol withdrawal progresses -Continue gabapentin Noncardiac chest pain-tender to palpation over the anterior chest. She may have some costochondritis. She is a smoker and has been abusing alcohol and may h ave some gastritis. -PPI -Acetaminophen for pain Bipolar disorder-does not appear to be decompensated at this time. -Continue home medications with renal dosing for lamotrigine (reduced by 50%) Tobacco dependence-patient will need some counseling about the dangers of smoking as well as cessation information when she is more clear. Maintenance issues - -DVT prophylaxis-mechanical -GI prophylaxis-PPI -Nutrition-regular -Rivas catheter-not indicated CODE STATUS -full code Admission justification -this patient will be admitted for inpatient services and is medically appropriate meeting medical necessity for inpatient admission as outlined in my documentation. I reasonably expect the patient will require inpatient services that span a period time over 2 midnights. I reasonably expect this patient to be discharged or transferred within 96 hours [facility] Disposition -I anticipate discharge home after the hospital stay Primary care physician -Dr. Bar Glover
[2020-10-24] MEDS ORDERED: Sodium Chloride 0.9% 1,000 ML IV SCH (12:30)
[2020-10-24] MEDS: Gabapentin 300 MG Cap PO SCH ×3 (12:50→21:52)
[2020-10-24] MEDS: Nicotine 14 MG/24 Hr Patch TRDERM SCH (12:54)
[2020-10-24] MEDS: Metoprolol Succinate 25 MG Tab.ER PO SCH (13:15)
[2020-10-24] MEDS: lamoTRIgine 100 MG Tab PO SCH ×2 (13:16→21:52)
[2020-10-24] MEDS: buPROPion 150 MG Tab.SR PO SCH (13:17)
[2020-10-24] MEDS: Pantoprazole 40 MG Tab.CR PO SCH ×2 (13:17→21:52)
[2020-10-24] MEDS: Folic Acid 1 MG Tab PO SCH (13:17)
[2020-10-24] MEDS: Thiamine 100 MG Tab PO SCH (13:17)
[2020-10-24] MEDS: Pravastatin 20 MG Tab PO SCH (13:44)
[2020-10-24] MEDS: LORazepam 1 MG Tab PO SCH (13:45)
--- NOTE | 2020-10-24 16:07 | CR ---
CHEST: Portable 10/23/2020 at 3:44 PM CLINICAL HISTORY:Chest pain COMPARISON:2019 FINDINGS: The heart size, pulmonary vascularity and hilar structures are normal. No infiltrate effusion or pneumothorax is seen. There is a monitor device near the midline. IMPRESSION: No acute cardiopulmonary process.
[2020-10-24] MEDS: Melatonin 3 MG Tab PO SCH (21:51)
[2020-10-24] MEDS: LORazepam 1 MG Tab PO PRN (21:52)
[2020-10-24] MEDS: lamoTRIgine 25 MG Tab PO SCH (21:52)
[2020-10-24] MEDS: Topiramate 25 MG Tab PO SCH (21:53)
[2020-10-25] MEDS: LORazepam 1 MG Tab PO PRN (06:09)
[2020-10-25] MEDS: Formoterol/Mometasone 100-5 MCG 8.8 GM Inhaler IH SCH (07:11)
[2020-10-25] MEDS ORDERED: Cyproheptadine 4 MG Tab PO SCH (09:00)
[2020-10-25] MEDS: Metoprolol Succinate 25 MG Tab.ER PO SCH (09:11)
[2020-10-25] MEDS: Pantoprazole 40 MG Tab.CR PO SCH (09:11)
[2020-10-25] MEDS: Thiamine 100 MG Tab PO SCH (09:11)
[2020-10-25] MEDS: Folic Acid 1 MG Tab PO SCH (09:12)
[2020-10-25] MEDS: Gabapentin 300 MG Cap PO SCH (09:12)
[2020-10-25] MEDS: buPROPion 150 MG Tab.SR PO SCH (09:12)
[2020-10-25] MEDS: Pravastatin 20 MG Tab PO SCH (09:12)
[2020-10-25] MEDS: lamoTRIgine 100 MG Tab PO SCH (09:13)
[2020-10-25] MEDS: Nicotine 14 MG/24 Hr Patch TRDERM SCH (09:14)
--- NOTE | 2020-10-25 10:25 | PCM.DCSUM1 ---
Discharge Summary - Hospital Course Brief History: Ms. Moreau is a 50-year-old woman who was admitted through the emergency department with weakness, lightheadedness, syncope, secondary to alcohol withdrawal with dehydration, hypokalemia, and acute kidney injury. - Discharge Data Discharge Date: 10/25/20 Discharge Disposition: Home, Self-Care 01 Condition: Fair - Referral to Home Health Primary Care Physician: Bar Glover Sr, MD - Discharge Diagnosis/Problem(s) (1) Alcohol withdrawal delirium SNOMED Code(s): 2100443 ICD Code: F10.231 - ALCOHOL DEPENDENCE WITH WITHDRAWAL DELIRIUM Status: Acute Current Visit: Yes (2) SUYAPA (acute kidney injury) SNOMED Code(s): 79850685, 48819082 ICD Code: N17.9 - ACUTE KIDNEY FAILURE, UNSPECIFIED Status: Acute Current Visit: Yes (3) Dehydration SNOMED Code(s): 99160936 ICD Code: E86.0 - DEHYDRATION Status: Acute Current Visit: Yes (4) Alcohol abuse SNOMED Code(s): 34006065 ICD Code: F10.10 - ALCOHOL ABUSE, UNCOMPLICATED Status: Acute Current Visit: Yes (5) Bipolar disorder SNOMED Code(s): 63980723 ICD Code: F31.9 - BIPOLAR DISORDER, UNSPECIFIED Status: Chronic Current Visit: Yes Qualifiers: Active/Remission status: remission status unspecified Qualified Code(s): F31.9 - Bipolar disorder, unspecified (6) Hypokalemia SNOMED Code(s): 89749686 ICD Code: E87.6 - HYPOKALEMIA Status: Acute Current Visit: Yes - Patient Summary/Data Consults: Consultations 10/24/20 07:00 PT Evaluation and Treatment [CONS] Routine Please Evaluate and Treat. PT Reason for Consult: Strengthening This query below is only for informational purposes and is not editable. Hospital Course: Ms. Moreau presented to the emergency room after several episodes of syncope as well as generalized weakness. She reports for the last 3 days or so she has been feeling off. She has had several episodes of syncope with no preceding symptoms. She feels weak all over and has no energy. She is complaining of nearly constant achy chest pain in the middle of her chest. She describes this as moderate in severity. She has tried a variety of things including Maalox at home without any relief. Food does not make the pain any better or worse. She does not think it is getting any worse but it has not gotten any better. It does hurt when she presses on her chest. No fevers or chills. No nausea or vomiting. No change in bowel or bladder habits. She thinks that she drinks plenty of water but then says no most of my intake is coffee. She does admit that she has fallen off the wagon. She admits to drinking for the last 3 days but family thinks it has been longer than that. She says her last drink was 3 days ago but did still have a small amount of alcohol in her system today. Work- up in the emergency room revealed profound hypokalemia at 2.6 as well as acute kidney injury with a creatinine of 1.8. EKG had diffuse T wave inversions. Troponin was normal. Chest x-ray was clear. Potassium supplementation was initiated in the emergency room. She was admitted for hydration and management of the low potassium and acute kidney injury. On admission potassium re placement was continued and by the time of discharge potassium level was within desired range. Renal function improved with hydration and was back to baseline by the time of discharge. She did experience mild to moderate symptoms of alcohol withdrawal which was managed by the alcohol withdrawal protocol. By the time of discharge she was and ambulating independently and no longer experiencing lightheadedness. She is committed to stopping her alcohol use and is planning on following up with her psychologist shortly after discharge. She continued to experience some symptoms of dysphagia with discomfort on swallowing but this was significantly improved from admission. She will be discharged home with Protonix 40 mg twice daily for 2 weeks then once daily thereafter. Follow-up appointment will be scheduled with her primary care provider within 1 week. - Patient Instructions Diet: Usual Diet as Tolerated Activity: As Tolerated - Discharge Plan *PRESCRIPTION DRUG MONITORING PROGRAM REVIEWED*: Not Applicable *COPY OF PRESCRIPTION DRUG MONITORING REPORT IN PATIENT JOSÉ LUIS: Not Applicable Prescriptions/Med Rec: Pantoprazole [ProTONIX] 40 mg PO BIDAC #30 tab.cr Home Medications: Home Meds Ferrous Sulfate, Dried [Slow Release Iron] 200 mg PO DAILY 10/01/17 [History] Gabapentin [Neurontin] 600 mg PO TID 10/01/17 [History] lamoTRIgine [Lamotrigine] 200 mg PO QAM 10/01/17 [History] Ascorbic Acid [Vitamin C] 500 mg PO DAILY 10/03/17 [History] Omeprazole 40 mg PO DAILY 02/19/18 [History] LORazepam [Ativan] 1 mg PO QID PRN 12/27/18 [History] Budesonide/Formoterol Fumarate [Budesonide-Formoterol 80-4.5] 2 puff IH BID PRN 02/05/20 [History] Calcium Carbonate [Calcium] 600 mg PO DAILY 02/05/20 [History] Cholecalciferol (Vitamin D3) [Vitamin D3] 2,000 unit PO DAILY 02/05/20 [History] Cyproheptadine HCl 8 mg PO BID 02/05/20 [History] Ibuprofen 800 mg PO TIDMEALS PRN 02/05/20 [History] Nitroglycerin [Nitrostat] 0.4 mg SL ASDIRECTED PRN 02/05/20 [History] Pravastatin Sodium 20 mg PO DAILY 02/05/20 [History] Topiramate 25 mg PO BEDTIME 02/05/20 [History] Zinc 50 mg PO DAILY 02/05/20 [History] buPROPion [Wellbutrin SR] 150 mg PO DAILY 02/05/20 [History] lamoTRIgine [Lamotrigine] 250 mg PO BEDTIME 02/05/20 [History] Metoprolol Succinate 25 mg PO DAILY 03/28/20 [History] Vitamin E 200 units PO DAILY 03/31/20 [History] QUEtiapine Fumarate [Quetiapine Fumarate ER] 1,200 mg PO BEDTIME 10/24/20 [Histo ry] Pantoprazole [ProTONIX] 40 mg PO BIDAC #30 tab.cr 10/25/20 [Rx] Referrals: Bar Glover Sr, MD [Primary Care Provider] - 11/07/20 12:30 pm - Discharge Summary/Plan Comment DC Time >30 min.: No - Patient Data Vitals - Most Recent: Last Vital Signs Temp 97.6 F 10/25/20 07:00 Pulse 95 10/25/20 09:11 Resp 16 10/25/20 09:00 BP 125/72 10/25/20 09:11 Pulse Ox 90 L 10/25/20 09:00 Weight - Most Recent: 141 lb 4.814 oz I&O - Last 24 hours: Intake & Output 10/24/20 10/25/20 10/25/20 22:59 06:59 14:59 Intake Total 2500 1547 1000 Output Total 680 Balance 2500 867 1000 Lab Results - Last 24 hrs: Laboratory Results - last 24 hr 10/25/20 10/25/20 Range/Units 05:25 05:25 WBC 5.2 (4.5-11.0) K/uL RBC 2.88 L (3.30-5.50) M/uL Hgb 9.4 L (12.0-15.0) g/dL Hct 29.2 L (36.0-48.0) % MCV 101 H (80-98) fL MCH 33 H (27-31) pg MCHC 32 (32-36) % Plt Count 327 (150-400) K/uL Add Manual Diff Yes Neutrophils % (Manual) 62 (36-66) % Band Neutrophils % 1 L (5-11) % Lymphocytes % (Manual) 27 (24-44) % Monocytes % (Manual) 8 H (2-6) % Eosinophils % (Manual) 2 (2-4) % Sodium 144 (140-148) mmol/L Potassium 3.9 (3.6-5.2) mmol/L Chloride 107 (100-108) mmol/L Carbon Dioxide 26 (21-32) mmol/L Anion Gap 11.4 (5.0-14.0) mmol/L BUN 13 (7-18) mg/dL Creatinine 1.1 H (0.6-1.0) mg/dL Est Cr Clr Drug Dosing 54.97 mL/min Estimated GFR (MDRD) 53 L (>60) Glucose 94 (74-106) mg/dL Calcium 8.8 (8.5-10.1) mg/dL Med Orders - Current: Current Medications Acetaminophen (Acetaminophen 325 Mg Tab) 650 mg PO Q4H PRN PRN Reason: Pain (Mild 1-3)/fever Albuterol (Albuterol 0.083% 2.5 Mg/3 Ml Neb Soln) 2.5 mg NEB Q4H PRN PRN Reason: Shortness Of Breath/wheezing Bupropion HCl (Bupropion 150 Mg Tab.Sr) 150 mg PO DAILY [facility]ITA Last Admin: 10/25/20 09:12 Dose: 150 mg Documented by: Cyproheptadine HCl (Cyproheptadine 4 Mg Tab) 8 mg PO BID [facility] Last Admin: 10/25/20 09:18 Dose: Not Given Documented by: Folic Acid (Folic Acid 1 Mg Tab) 1 mg PO DAILY [facility] Last Admin: 10/25/20 09:12 Dose: 1 mg Documented by: Gabapentin (Gabapentin 300 Mg Cap) 600 mg PO TID [facility] Last Admin: 10/25/20 09:12 Dose: 600 mg Documented by: Haloperidol Lactate (Haloperidol Lactate 5 Mg/Ml Sdv) 5 mg IVPUSH Q4H PRN PRN Reason: Agitation Sodium Chloride (Normal Saline) 1,000 mls @ 50 mls/hr IV ASDIRECTED [facility] Last Admin: 10/24/20 16:21 Dose: 50 mls/hr Documented by: Lamotrigine (Lamotrigine 100 Mg Tab) 100 mg PO QAM [facility] Last Admin: 10/25/20 09:13 Dose: 100 mg Documented by: Lamotrigine (Lamotrigine 100 Mg Tab) 100 mg PO BEDTIME [facility] Last Admin: 10/24/20 21:52 Dose: 100 mg Documented by: Lamotrigine (Lamotrigine 25 Mg Tab) 25 mg PO BEDTIME [facility] Last Admin: 10/24/20 21:52 Dose: 25 mg Documented by: Lorazepam (Lorazepam 1 Mg Tab) 1 mg PO QID PRN PRN Reason: Anxiety Last Admin: 10/25/20 06:09 Dose: 1 mg Documented by: Lorazepam (Lorazepam 1 Mg Tab) 0 mg PO ASDIRECTED [facility]; Protocol Last Admin: 10/24/20 13:45 Dose: 2 mg Documented by: Lorazepam (Lorazepam 2 Mg/Ml Sdv) 0 mg IV ASDIRECTED [facility]; Protocol Last Admin: 10/24/20 07:26 Dose: 2 mg Documented by: Magnesium Hydroxide (Magnesium Hydroxide 400 Mg/5 Ml Susp 30 Ml Cup) 30 ml PO Q12H PRN PRN Reason: Constipation Melatonin (Melatonin 3 Mg Tab) 9 mg PO BEDTIME [facility] Last Admin: 10/24/20 21:51 Dose: 9 mg Documented by: Metoprolol Succinate (Metoprolol Succinate 25 Mg Tab.Er) 25 mg PO DAILY [facility] Last Admin: 10/25/20 09:11 Dose: 25 mg Documented by: Mometasone Furoate/Formoterol Fumar (Formoterol/Mometasone 100-5 Mcg 8.8 Gm Inhaler) 2 puff IH BIDRT [facility] Last Admin: 10/25/20 07:11 Dose: 2 puff Documented by: Nicotine (Nicotine 14 Mg/24 Hr Patch) 14 mg TRDERM DAILY [facility] Last Admin: 10/25/20 09:14 Dose: 14 mg Documented by: Ondansetron HCl (Ondansetron 4 Mg/2 Ml Sdv) 4 mg IV Q6H PRN PRN Reason: Nausea/Vomiting Ondansetron HCl (Ondansetron 4 Mg Tab.Dis) 4 mg PO Q6H PRN PRN Reason: Nausea able to take PO Pantoprazole Sodium (Pantoprazole 40 Mg Tab.Cr) 40 mg PO BIDAC [facility] Last Admin: 10/25/20 09:11 Dose: 40 mg Documented by: Pravastatin Sodium (Pravastatin 20 Mg Tab) 20 mg PO DAILY [facility] Last Admin: 10/25/20 09:12 Dose: 20 mg Documented by: Quetiapine Fumarate (Quetiapine 300 Mg Tab) 600 mg PO BID [facility] Last Admin: 10/25/20 09:13 Dose: 600 mg Documented by: Senna/Docusate Sodium (Docusate Sodium/Sennosides 50-8.6 Mg Tab) 1 tab PO BID PRN PRN Reason: Constipation Sodium Chloride (Sodium Chloride 0.9% 10 Ml Syringe) 10 ml FLUSH ASDIRECTED PRN PRN Reason: Keep Vein Open Last Admin: 10/23/20 15:30 Dose: 10 ml Documented by: Thiamine HCl (Thiamine 100 Mg Tab) 100 mg PO DAILY [facility] Last Admin: 10/25/20 09:11 Dose: 100 mg Documented by: Topiramate (Topiramate 25 Mg Tab) 25 mg PO BEDTIME [facility] Last Admin: 10/24/20 21:53 Dose: 25 mg Documented by: Discontinued Medications Aspirin (Aspirin 81 Mg Tab.Chew) 324 mg PO ONETIME ONE Stop: 10/23/20 15:14 Last Admin: 10/23/20 15:32 Dose: 324 mg Documented by: Al Hydroxide/Mg Hydroxide 15 (ml/ Lidocaine HCl 15 ml) 0 ml PO ONETIME ONE Stop: 10/23/20 15:37 Last Admin: 10/23/20 15:49 Dose: 30 ml Documented by: Famotidine (Famotidine 20 Mg/2 Ml Sdv) 20 mg IVPUSH ONETIME ONE Stop: 10/23/20 15:37 Last Admin: 10/23/20 15:45 Dose: 20 mg Documented by: Multivitamins/Minerals 10 ml/Thiamine HCl 100 mg/ Folic Acid 1 mg/ Magnesium Sulfate 3 gm/ Sodium Chloride 1,017.2 mls @ 500 mls/hr IV ASDIRECTED [facility] Last Admin: 10/23/20 16:02 Dose: 500 mls/hr Documented by: Potassium Chloride 20 meq/Lidocaine HCl 2 ml/ Sodium Chloride 112 mls @ 50 mls/hr IV Q2H [facility] Last Admin: 10/23/20 16:38 Dose: Not Given Documented by: Potassium Chloride (Kcl In Water 20 Meq/100 Ml) Confirm Administered Dose 200 mls @ as directed .ROUTE .K-MED ONE Stop: 10/23/20 16:15 Last Admin: 10/23/20 16:38 Dose: Not Given Documented by: Potassium Chloride (Kcl In Water 20 Meq/100 Ml) 100 mls @ 50 mls/hr IV Q2H [facility] Stop: 10/23/20 20:29 Last Admin: 10/23/20 19:51 Dose: 50 mls/hr Documented by: Potassium Chloride/Sodium Chloride (Normal Saline With 20 Meq Kcl) 1,000 mls @ 125 mls/hr IV ASDIRECTED [facility] Last Admin: 10/24/20 07:55 Dose: 125 mls/hr Documented by: Magnesium Sulfate 2 gm/ Premix 50 mls @ 25 mls/hr IV ONETIME ONE Stop: 10/23/20 21:12 Last Admin: 10/23/20 21:28 Dose: 25 mls/hr Documented by: Lidocaine HCl (Lidocaine 1% 5 Ml Sdv) Confirm Administered Dose 5 ml .ROUTE .STK-MED ONE Stop: 10/23/20 16:16 Last Admin: 10/23/20 16:38 Dose: Not Given Documented by: Lidocaine HCl (Lidocaine 1% 5 Ml Sdv) 2 ml .XX Q2H [facility] Stop: 10/23/20 18:31 Last Admin: 10/23/20 19:51 Dose: 2 ml Documented by: Lorazepam (Lorazepam 2 Mg/Ml Sdv) 0.5 mg IVPUSH ONETIME ONE Stop: 10/23/20 16:49 Last Admin: 10/23/20 16:57 Dose: 0.5 mg Documented by: Nicotine (Nicotine 21 Mg/24 Hr Patch) 21 mg TRDERM ONETIME ONE Stop: 10/23/20 16:50 Last Admin: 10/23/20 17:07 Dose: 21 mg Documented by: Potassium Chloride (Potassium Chloride 20 Meq Tab.Er) 40 meq PO ONETIME ONE Stop: 10/23/20 17:50 Last Admin: 10/23/20 18:27 Dose: 40 meq Documented by: Potassium Chloride (Potassium Chloride 20 Meq Tab.Er) 40 meq PO ONETIME ONE Stop: 10/24/20 14:01 Last Admin: 10/24/20 14:06 Dose: 40 meq Documented by: Quetiapine Fumarate (Quetiapine 300 Mg Tab) 1,200 mg PO BEDTIME [facility] Last Admin: 10/23/20 21:27 Dose: 1,200 mg Documented by: - Exam General: Reports: Alert, Oriented, Cooperative, No Acute Distress Lungs: Reports: Clear to Auscultation, Normal Respiratory Effort Cardiovascular: Reports: Regular Rate, Regular Rhythm, No Murmurs GI/Abdominal Exam: Soft, Non-Tender, No Organomegaly, No Distention Extremities: Non-Tender, No Pedal Edema
[2020-10-25] MEDS: LORazepam 1 MG Tab PO SCH (10:40)
== END 2020-10-25 11:45 | disposition home or self-care (01) | DRG 683 ==
LOC: JP.ED 14:46 → JP.ICU 18:52
PROVIDERS: ADMIT Internal Medicine; ATTEND Internal Medicine
DX: N17.9 Acute kidney failure, unspecified (principal); F10.231 Alcohol dependence with withdrawal delirium; E86.0 Dehydration; F10.10 Alcohol abuse, uncomplicated; Y90.9 Presence of alcohol in blood, level not specified; F31.9 Bipolar disorder, unspecified; E87.6 Hypokalemia; E78.00 Pure hypercholesterolemia, unspecified; J44.9 Chronic obstructive pulmonary disease, unspecified; G47.30 Sleep apnea, unspecified; K21.9 Gastro-esophageal reflux disease without esophagitis; F41.9 Anxiety disorder, unspecified; R07.89 Other chest pain; Y90.0 Blood alcohol level of less than 20 mg/100 ml; E03.9 Hypothyroidism, unspecified; D50.9 Iron deficiency anemia, unspecified; F17.210 Nicotine dependence, cigarettes, uncomplicated; Z88.2 Allergy status to sulfonamides; Z79.899 Other long term (current) drug therapy; Z98.890 Other specified postprocedural states; Z90.710 Acquired absence of both cervix and uterus
CPT/HCPCS: 36415; 71045 ×2; 80053; 80307; 83735; 84484; 85025; 85610; 85730; 93005; A9270 ×5; J2060; J3411; J3475; J3480; J3490; J7030; 80048; 82140; 84132; 85027; 94640; 96365; 96366; 96368; 96375; 99285-25

== ENCOUNTER 2020-10-29 15:23 | Emergency (ER) | payer MEDICARE ==
--- NOTE | 2020-10-29 19:06 | EDM.PDOC ---
ED HPI GENERAL MEDICAL PROBLEM - General Chief Complaint: General Stated Complaint: EVAL Time Seen by Provider: 10/29/20 16:09 Source of Information: Reports: Patient History Limitations: Reports: No Limitations - History of Present Illness INITIAL COMMENTS - FREE TEXT/NARRATIVE: 50 yo female presents to ER with ADRIANA c/o balance abnormalities, confusion, and tremors. She was staying with her sister in [place]. yesterday was a good day she participated in a bbq, in the middle of the night she woke family talking loud, confused and having trouble walking. She was able to be calmed and settled into bed. this morning she continued to have tremors and trouble walking. She was going to fly to [place] today for vacation, but TSA did not allow her to board plane today. She has a extensive hx of alcohol abuse sp ADRIANA brought her to area (she lives in [facility]) to [place]. When presented to [facility] they instructed him to present to ER. She does state that she is self decreasing her Seroquel and last evening took 2. She does control her own medications and usually has them divided by time of day but did not have them divided last evening. She is afebrile. - Related Data Allergies Allergy/AdvReac Type Severity Reaction Status Date / Time Sulfa (Sulfonamide Allergy Hives Verified 10/29/20 15:48 Antibiotics) Home Meds: Home Meds Ferrous Sulfate, Dried [Slow Release Iron] 200 mg PO DAILY 10/01/17 [History] Gabapentin [Neurontin] 600 mg PO TID 10/01/17 [History] lamoTRIgine [Lamotrigine] 200 mg PO QAM 10/01/17 [History] Ascorbic Acid [Vitamin C] 500 mg PO DAILY 10/03/17 [History] Omeprazole 40 mg PO DAILY 02/19/18 [History] LORazepam [Ativan] 1 mg PO QID PRN 12/27/18 [History] Budesonide/Formoterol Fumarate [Budesonide-Formoterol 80-4.5] 2 puff IH BID PRN 02/05/20 [History] Cyproheptadine HCl 8 mg PO BID 02/05/20 [History] Ibuprofen 800 mg PO TIDMEALS PRN 02/05/20 [History] Nitroglycerin [Nitrostat] 0.4 mg SL ASDIRECTED PRN 02/05/20 [History] Pravastatin Sodium 20 mg PO DAILY 02/05/20 [History] Topiramate 25 mg PO BEDTIME 02/05/20 [History] Zinc 50 mg PO DAILY 02/05/20 [History] buPROPion [Wellbutrin SR] 150 mg PO DAILY 02/05/20 [History] lamoTRIgine [Lamotrigine] 250 mg PO BEDTIME 02/05/20 [History] Metoprolol Succinate 25 mg PO DAILY 03/28/20 [History] Vitamin E 200 units PO DAILY 03/31/20 [History] QUEtiapine Fumarate [Quetiapine Fumarate ER] 1,200 mg PO BEDTIME 10/24/20 [History] Pantoprazole [ProTONIX] 40 mg PO BIDAC #30 tab.cr 10/25/20 [Rx] Past Medical History HEENT History: Reports: None, Impaired Vision Cardiovascular History: Reports: Angina, High Cholesterol, Hypertension, SOB on Exertion, Syncope, Other (See Below) Other Cardiovascular History: "small leak in heart pt states per Dr. Glover" Respiratory History: Reports: COPD, Sleep Apnea Gastrointestinal History: Reports: GERD Genitourinary History: Reports: None [employer]URE [employer] W[employer]ER History: Reports: Endometriosis, Musculoskeletal History: Reports: Other (See Below) Other Musculoskeletal History: will be having carpal tunnel surgery 07/22/18 Psychiatric History: Reports: Addiction, Anxiety, Bipolar, Depression Other Psychiatric History: essential tremors Endocrine/Metabolic History: Reports: Hyperthyroidism Hematologic History: Reports: Anemia, Iron Deficiency - Infectious Disease History Infectious Disease History: Reports: Chicken Pox, Measles - Past Surgical History Head Surgeries/Procedures: Reports: None HEENT Surgical History: Reports: Adenoidectomy, Tonsillectomy Cardiovascular Surgical History: Reports: None Respiratory Surgical History: Reports: None GI Surgical History: Reports: Colonoscopy, EGD Female Surgical History: Reports: Section, Hysterectomy, Salpingo- Oophorectomy Endocrine Surgical History: Reports: None Musculoskeletal Surgical History: Reports: Carpal Tunnel Dermatological Surgical History: Reports: None Social & Family History - Family History Family Medical History: No Pertinent Family History - Tobacco Use Tobacco Use Status *Q: Current Every Day Tobacco User Years of Tobacco use: 35 Packs/Tins Daily: 0.5 Used Tobacco, but Quit: No Second Hand Smoke Exposure: No - Caffeine Use Caffeine Use: Reports: Coffee - Recreational Drug Use Recreational Drug Use: No ED ROS GENERAL - Review of Systems Review Of Systems: See Below Constitutional: Denies: Fever, Chills Respiratory: Denies: Shortness of Breath, Wheezing Cardiovascular: Denies: Chest Pain Endocrine: Denies: Fatigue GI/Abdominal: Denies: Abdominal Pain Neurological: Reports: Confusion, Tremors, Difficulty Walking, Weakness, Gait Disturbance Psychiatric: Reports: Anxiety, Confusion, Depression, Hallucinations ED EXAM, GENERAL - Physical Exam Exam: See Below Exam Limited By: No Limitations General Appearance: Alert, WD/WN, No Apparent Distress Respiratory/Chest: No Respiratory Distress, Lungs Clear, Normal Breath Sounds, No Accessory Muscle Use, Chest Non-Tender. No: Crackles, Rhonchi, Wheezing Cardiovascular: Normal Peripheral Pulses, Regular Rate, Rhythm, No Edema, No Murmur GI/Abdominal: Soft, Non-Tender Neurological: Alert, Oriented, Slow to Respond Psychiatric: Anxious, Tearful Skin Exam: Warm, Dry, Intact Course - Vital Signs Last Recorded V/S: Last Vital Signs Temp 36.1 C 10/29/20 15:52 Pulse 91 10/29/20 19:35 Resp 18 10/29/20 19:35 BP 123/77 10/29/20 19:35 Pulse Ox 100 10/29/20 19:35 - Orders/Labs/Meds Orders: Active Orders 24 hr Category Date Time Status Isolation [COMM] Stat Ot 10/29/20 16:11 Ordered Labs: Laboratory Tests 10/29/20 10/29/20 10/29/20 Range/Units 16:11 16:16 16:18 WBC (4.5-11.0) K/uL RBC (3.30-5.50) M/uL Hgb (12.0-15.0) g/dL Hct (36.0-48.0) % MCV (80-98) fL MCH (27-31) pg MCHC (32-36) % Plt Count (150-400) K/uL Neut % (Auto) (36-66) % Lymph % (Auto) (24-44) % Titus % (Auto) (2-6) % Eos % (Auto) (2-4) % Baso % (Auto) (0-1) % Sodium (140-148) mmol/L Potassium (3.6-5.2) mmol/L Chloride (100-108) mmol/L Carbon Dioxide (21-32) mmol/L Anion Gap (5.0-14.0) mmol/L BUN (7-18) mg/dL Creatinine (0.6-1.0) mg/dL Est Cr Clr Drug Dosing mL/min Estimated GFR (MDRD) (>60) Glucose (74-106) mg/dL Calcium (8.5-10.1) mg/dL Total Bilirubin (0.2-1.0) mg/dL AST (15-37) U/L ALT (12-78) U/L Alkaline Phosphatase (46-116) U/L Total Protein (6.4-8.2) g/dL Albumin (3.4-5.0) g/dL Globulin (2.3-3.5) g/dL Albumin/Globulin Ratio (1.2-2.2) Urine Color (YELLOW) Urine Appearance (CLEAR) Urine pH (5.0-8.0) Ur Specific [place] (1.008-1.030) Urine Protein (NEGATIVE) mg/dL Urine Glucose (UA) (NEGATIVE) mg/dL Urine Ketones (NEGATIVE) mg/dL Urine Occult Blood (NEGATIVE) Urine Nitrite (NEGATIVE) Urine Bilirubin (NEGATIVE) Urine Urobilinogen (0.2-1.0) EU/dL Ur Leukocyte Esterase (NEGATIVE) Urine RBC (0-5) Urine WBC (0-5) Ur Epithelial Cells Amorphous Sediment Urine Bacteria Urine Mucus Urine Opiates Screen Negative (NEGATIVE) Ur Oxycodone Screen Negative (NEGATIVE) Urine Methadone Screen Negative (NEGATIVE) Ur Propoxyphene Screen Negative (NEGATIVE) Ur Barbiturates Screen Negative (NEGATIVE) Ur Tricyclics Screen Presumptive positive H (NEGATIVE) Ur Phencyclidine Scrn Presumptive positive H (NEGATIVE) Ur Amphetamine Screen Negative (NEGATIVE) U Methamphetamines Scrn Negative (NEGATIVE) Urine MDMA Screen Negative (NEGATIVE) U Benzodiazepines Scrn Presumptive positive H (NEGATIVE) U Cocaine Metab Screen Negative (NEGATIVE) U Marijuana (THC) Screen Negative (NEGATIVE) Ethyl Alcohol < 3 mg/dL SARS CoV-2 RNA Rapid GUICHO Negative 10/29/20 10/29/20 10/29/20 Range/Units 18:33 18:34 18:34 WBC 6.2 (4.5-11.0) K/uL RBC 3.07 L (3.30-5.50) M/uL Hgb 9.6 L (12.0-15.0) g/dL Hct 31.4 L (36.0-48.0) % MCV 102 H (80-98) fL MCH 31 (27-31) pg MCHC 31 L (32-36) % Plt Count 414 H (150-400) K/uL Neut % (Auto) 62.6 (36-66) % Lymph % (Auto) 18.5 L (24-44) % Titus % (Auto) 15.8 H (2-6) % Eos % (Auto) 2.4 (2-4) % Baso % (Auto) 0.7 (0-1) % Sodium 144 (140-148) mmol/L Potassium 3.8 (3.6-5.2) mmol/L Chloride 106 (100-108) mmol/L Carbon Dioxide 24 (21-32) mmol/L Anion Gap 14.4 H (5.0-14.0) mmol/L BUN 9 (7-18) mg/dL Creatinine 1.1 H (0.6-1.0) mg/dL Est Cr Clr Drug Dosing 59.50 mL/min Estimated GFR (MDRD) 53 L (>60) Glucose 100 (74-106) mg/dL Calcium 9.2 (8.5-10.1) mg/dL Total Bilirubin 0.2 (0.2-1.0) mg/dL AST 12 L (15-37) U/L ALT 15 (12-78) U/L Alkaline Phosphatase 75 (46-116) U/L Total Protein 6.8 (6.4-8.2) g/dL Albumin 3.7 (3.4-5.0) g/dL Globulin 3.1 (2.3-3.5) g/dL Albumin/Globulin Ratio 1.2 (1.2-2.2) Urine Color Yellow (YELLOW) Urine Appearance Clear (CLEAR) Urine pH 7.0 (5.0-8.0) Ur Specific [place] 1.015 (1.008-1.030) Urine Protein Negative (NEGATIVE) mg/dL Urine Glucose (UA) Negative (NEGATIVE) mg/dL Urine Ketones Negative (NEGATIVE) mg/dL Urine Occult Blood Negative (NEGATIVE) Urine Nitrite Negative (NEGATIVE) Urine Bilirubin Negative (NEGATIVE) Urine Urobilinogen 0.2 (0.2-1.0) EU/dL Ur Leukocyte Esterase Negative (NEGATIVE) Urine RBC 0-5 (0-5) Urine WBC Not seen (0-5) Ur Epithelial Cells Few Amorphous Sediment Few Urine Bacteria Few Urine Mucus Not seen Urine Opiates Screen (NEGATIVE) Ur Oxycodone Screen (NEGATIVE) Urine Methadone Screen (NEGATIVE) Ur Propoxyphene Screen (NEGATIVE) Ur Barbiturates Screen (NEGATIVE) Ur Tricyclics Screen (NEGATIVE) Ur Phencyclidine Scrn (NEGATIVE) Ur Amphetamine Screen (NEGATIVE) U Methamphetamines Scrn (NEGATIVE) Urine MDMA Screen (NEGATIVE) U Benzodiazepines Scrn (NEGATIVE) U Cocaine Metab Screen (NEGATIVE) U Marijuana (THC) Screen (NEGATIVE) Ethyl Alcohol mg/dL SARS CoV-2 RNA Rapid GUICHO Departure - Departure Time of Disposition: 20:32 Disposition: Home, Self-Care 01 Condition: Good Clinical Impression: Balance disorder - Discharge Information *PRESCRIPTION DRUG MONITORING PROGRAM REVIEWED*: Not Applicable *COPY OF PRESCRIPTION DRUG MONITORING REPORT IN PATIENT JOSÉ LUIS: Not Applicable Referrals: PCP,None [Primary Care Provider] - Forms: ED Department Discharge Additional Instructions: follow-up with primary care doctor on Saturday along with psychology return to Emergency Room if worsening symptoms Sepsis Event Note (ED) - Evaluation Sepsis Screening Result: No Definite Risk - Focused Exam Vital Signs: Vital Signs Temp Pulse Resp BP Pulse Ox 10/29/20 19:35 91 18 123/77 100 10/29/20 15:52 36.1 C 82 16 146/84 H 96 10/29/20 15:47 36.1 C 82 16 146/84 H 96 - My Orders Last 24 Hours: My Active Orders 10/29/20 16:11 Isolation [COMM] Stat - Assessment/Plan Last 24 Hours: My Active Orders 10/29/20 16:11 Isolation [COMM] Stat
--- NOTE | 2020-10-29 20:08 | CRLCT ---
INDICATION: Confusion. TECHNIQUE: CT head without IV contrast. FINDINGS: No intracranial hemorrhage, edema, or mass-effect. Loculated fluid or retention cyst right sphenoid sinus. Defects in the medial herrera of the maxillary sinuses bilaterally may be related to prior sinus surgery. Mild cerebral and cerebellar atrophy. Right frontal scalp nodule superiorly and should be benign. Nodule or lymph node in the right occipital scalp. Remainder negative. IMPRESSION: No acute intracranial disease. Mild cerebral and cerebellar atrophy. Loculated fluid or retention cyst right sphenoid sinus. Other findings as above. Please note that all CT scans at this facility use dose modulation, iterative reconstruction, and/or weight-based dosing when appropriate to reduce radiation dose to as low as reasonably achievable. Dictated by Rigoberto Bauer MD @ 10/29/2020 8:08:[address] Rigoberto Bauer @ Oct 29 2020 8:08PM
== END 2020-10-29 20:45 | disposition home or self-care (01) ==
LOC: JP.ED 15:23
DX: R26.89 Other abnormalities of gait and mobility (principal); K21.9 Gastro-esophageal reflux disease without esophagitis; E78.00 Pure hypercholesterolemia, unspecified; I10 Essential (primary) hypertension; E03.9 Hypothyroidism, unspecified; Z79.899 Other long term (current) drug therapy; Z72.0 Tobacco use; Z20.822 Contact with and (suspected) exposure to COVID-19
CPT/HCPCS: 36415; 70450; 80053; 80305; 80307; 81001; 85025; 99285; U0002

== ENCOUNTER 2022-10-04 08:42 | Day surgery (SDC) | payer MEDICARE ==
[~2022-10-04 08:42] MED LIST changes: -Lidocaine 2% Viscous Solution 15 ML Cup ONE; -Lidocaine 4% Top Soln 50 ML Bottle ONE; -fentaNYL 100 MCG/2 ML SDV ONE; +fentaNYL 50 MCG/ML SDV ONE
[2022-10-04] MEDS ORDERED: Dextrose 5%-Lactated Ringers 1,000 ML IV SCH (09:15)
[2022-10-04] MEDS ORDERED: Bupivacaine 0.5% 50 ML MDV ONE (09:42)
[2022-10-04] MEDS ORDERED: Lidocaine 1% with EPINEPHrine 1:100,000 50 ML MDV ONE (09:42)
[2022-10-04] MEDS ORDERED: ceFAZolin 2 GM in Premix Bag 1 BAG IV ONE (09:45)
[2022-10-04] MEDS ORDERED: Bupivacaine 0.5% 50 ML MDV INJECT ONE (11:02)
[2022-10-04] MEDS ORDERED: Linezolid 600 MG/300 ML Premix Bag IRR ONE (11:02)
[2022-10-04] MEDS ORDERED: Lidocaine 1% with EPINEPHrine 1:100,000 50 ML MDV INJECT ONE (11:02)
== END 2022-10-04 11:45 | disposition home or self-care (01) ==
LOC: JP.SDS 08:42
PROVIDERS: ATTEND Surgery
DX: N64.53 Retraction of nipple (principal); N62 Hypertrophy of breast; N64.1 Fat necrosis of breast; Z88.2 Allergy status to sulfonamides
CPT/HCPCS: 19120; 88304; 88305; J0690; J2020; J2250; J2704; J3010; J3490; J7121

== ENCOUNTER 2023-04-01 06:12 | Day surgery (SDC) | payer MEDICARE ==
[2023-04-01] MEDS ORDERED: Sodium Chloride 0.9% 1,000 ML IV SCH (06:30)
[2023-04-01] MEDS ORDERED: Midazolam 1 MG/ML 2 ML SDV ONE (07:18)
[2023-04-01] MEDS ORDERED: Propofol 200 MG/20 ML SDV ONE ×3 (07:18→08:38)
[2023-04-01] MEDS ORDERED: fentaNYL 50 MCG/ML SDV ONE (07:18)
[2023-04-01] MEDS ORDERED: Ondansetron 4 MG/2 ML SDV ONE (08:23)
== END 2023-04-01 10:20 | disposition home or self-care (01) ==
LOC: JP.SDS 06:12
PROVIDERS: ATTEND Internal Medicine
DX: K63.5 Polyp of colon (principal); K21.9 Gastro-esophageal reflux disease without esophagitis; K44.9 Diaphragmatic hernia without obstruction or gangrene; K31.1 Adult hypertrophic pyloric stenosis; J44.9 Chronic obstructive pulmonary disease, unspecified; E78.5 Hyperlipidemia, unspecified; F41.9 Anxiety disorder, unspecified; F31.9 Bipolar disorder, unspecified; F10.11 Alcohol abuse, in remission; F17.200 Nicotine dependence, unspecified, uncomplicated
CPT/HCPCS: 43235; 45380; J2250; J2405; J2704; J3010; J7030; 88305

== ENCOUNTER 2023-06-06 13:36 | Day surgery (SDC) | payer MEDICARE ==
[2023-06-06] MEDS ORDERED: Sodium Chloride 0.9% 1,000 ML IV SCH (14:00)
[2023-06-06] MEDS ORDERED: fentaNYL 100 MCG/2 ML SDV ONE (14:24)
[2023-06-06] MEDS ORDERED: Propofol 200 MG/20 ML SDV ONE (14:24)
[2023-06-06] MEDS ORDERED: Ondansetron 4 MG/2 ML SDV ONE (14:25)
== END 2023-06-06 15:49 | disposition home or self-care (01) ==
LOC: JP.SDS 13:36
PROVIDERS: ATTEND Internal Medicine
DX: K92.1 Melena (principal); K21.9 Gastro-esophageal reflux disease without esophagitis; J44.9 Chronic obstructive pulmonary disease, unspecified
CPT/HCPCS: 43235; J2405; J2704; J3010; J7030

== ENCOUNTER 2023-08-30 06:31 | Day surgery (SDC) | payer MEDICARE ==
[2023-08-30] MEDS ORDERED: fentaNYL 50 MCG/ML SDV ONE (07:01)
[2023-08-30] MEDS ORDERED: Propofol 200 MG/20 ML SDV ONE ×3 (07:01→08:14)
[2023-08-30] MEDS ORDERED: Midazolam 1 MG/ML 2 ML SDV ONE (07:01)
[2023-08-30] MEDS ORDERED: Lactated Ringers 1,000 ML IV SCH (08:00)
[2023-08-30] MEDS: Lactated Ringers 1,000 ML IV SCH (08:09)
[2023-08-31] MEDS ORDERED: Lactated Ringers 1,000 ML IV SCH (06:30)
== END 2023-08-30 09:45 | disposition home or self-care (01) ==
LOC: JP.SDS 06:31
PROVIDERS: ATTEND Student in an Organized Health Care Education/Training Program
DX: D12.0 Benign neoplasm of cecum (principal); D12.5 Benign neoplasm of sigmoid colon; K29.51 Unspecified chronic gastritis with bleeding; K22.70 Barrett's esophagus without dysplasia; K44.9 Diaphragmatic hernia without obstruction or gangrene
CPT/HCPCS: 43239; 45380; 45385; 88305; 93005; 93010; J2250; J2704; J3010; J7120

== ENCOUNTER 2023-09-03 08:52 | Observation (INO) | payer MEDICARE ==
[~2023-09-03 08:52] MED LIST changes: +Dexamethasone 4 MG/ML SDV ONE; +Glycopyrrolate 0.2 MG/ML 5 ML MDV ONE; -Midazolam 1 MG/ML 2 ML SDV ONE; +Neostigmine Methylsulfate 10 MG/10 ML MDV ONE; +Ondansetron 4 MG/2 ML SDV ONE; +Rocuronium 50 MG/5 ML Vial ONE; -fentaNYL 50 MCG/ML SDV ONE
[2023-09-03] MEDS: Acetaminophen 500 MG Tab PO ONE (09:19)
[2023-09-03] MEDS: Indocyanine Green 25 MG SDV IV ONE (09:41)
[2023-09-03] MEDS: Sodium Chloride 0.9% 1,000 ML IV SCH (09:42)
[2023-09-03] MEDS: cefTRIAXone 2 GM in Sodium Chloride 0.9% 50 ML IV ONE (11:40)
[2023-09-03] MEDS ORDERED: fentaNYL 250 MCG/5 ML SDV ONE ×2 (11:48→12:41)
[2023-09-03] MEDS: metroNIDAZOLE/Normal Saline 500 MG in Premix Bag 1 BAG IV ONE (12:00)
[2023-09-03] MEDS: Bupivacaine 0.5%/EPINEPHrine 1:200,000 50 ML MDV ONE (12:32)
[2023-09-03] MEDS ORDERED: Lactated Ringers 1,000 ML ONE (13:17)
[2023-09-03] MEDS ORDERED: Sennosides/Docusate Sodium 50-8.6 MG Tab PO PRN (13:43)
[2023-09-03] MEDS: Gabapentin 300 MG Cap PO SCH (14:50)
[2023-09-03] MEDS: Acetaminophen/HYDROcodone 325-5 MG Tab PO PRN (14:51)
[2023-09-03] MEDS: Ondansetron 4 MG/2 ML SDV IVPUSH PRN (16:05)
[2023-09-03] MEDS: CARIPRAZINE HYDROCHLORIDE 4.5 MG PO SCH (20:30)
[2023-09-03] MEDS: lamoTRIgine 100 MG Tab PO SCH (20:30)
[2023-09-03] MEDS: Topiramate 25 MG Tab PO SCH (20:31)
[2023-09-03] MEDS: Metoprolol Succinate 25 MG Tab.ER PO SCH (20:31)
[2023-09-03] MEDS: Pantoprazole 40 MG Tab.CR PO SCH (20:31)
[2023-09-03] MEDS ORDERED: Formoterol/Mometasone 100-5 MCG 8.8 GM Inhaler IH PRN (21:00)
[2023-09-04 06:01] LABS: HEMATOCRIT 33.2 % (34.3-46.0); HEMOGLOBIN 11.2 g/dL (11.2-15.5); MEAN CORPUSCULAR HEMOGLOBIN 31.4 pg (31.6-35.5); MEAN CORPUSCULAR HGB CONC 33.7 g/dL (31.6-35.5); RED BLOOD CELL COUNT 3.57 M/uL (3.77-5.24); WHITE BLOOD CELL COUNT,WBC 8.2 K/uL (3.2-11.0)
[2023-09-04 06:26] LABS: A/G RATIO 1.2 (1.2-2.2); ALANINE AMINOTRANSFERASE,ALT 13 U/L (12-78); ALBUMIN 3.3 g/dL (3.4-5.0); ALKALINE PHOSPHATASE 70 U/L (46-116); ASPARTATE AMNIOTRANSFERASE,AST 20 U/L (15-37); BILIRUBIN TOTAL 0.2 mg/dL (0.2-1.0); BLOOD UREA NITROGEN,BUN 11 mg/dL (7-18); CALCIUM 9.4 mg/dL (8.5-10.1); CARBON DIOXIDE,CO2 25 mmol/L (21-32); CHLORIDE,CL 103 mmol/L (100-108); CREATININE 1.2 mg/dL (0.6-1.0); EST CRCL DRUG DOSING (CG) 46.82 mL/min; ESTIMATED GFR 54 mL/min (>60); GLUCOSE RANDOM 122 mg/dL (74-106); MAGNESIUM 1.4 mg/dL (1.8-2.4); PHOSPHORUS 3.7 mg/dL (2.5-4.9); POTASSIUM,K 3.7 mmol/L (3.6-5.2); PROTEIN TOTAL,TP 6.1 g/dL (6.4-8.2); SODIUM,NA 138 mmol/L (140-148)
[2023-09-04 06:28] LABS: ANION GAP 13.7 mmol/L (5.0-14.0)
[2023-09-04] MEDS: Magnesium Sulfate/Water 2 GM in Premix Bag 1 BAG IV ONE (08:17)
[2023-09-04] MEDS: Sertraline 25 MG Tab PO SCH (08:19)
[2023-09-04] MEDS: Magnesium Oxide 400 MG Tab PO ONE (08:19)
[2023-09-04] MEDS ORDERED: FLUoxetine 20 MG Cap PO SCH (09:00)
== END 2023-09-04 13:15 | disposition home or self-care (01) ==
LOC: JP.SDS 08:52 → JP.2SS 13:43
PROVIDERS: ADMIT Student in an Organized Health Care Education/Training Program; ATTEND Student in an Organized Health Care Education/Training Program
DX: K80.10 Calculus of gallbladder with chronic cholecystitis without obstruction (principal); K21.9 Gastro-esophageal reflux disease without esophagitis; F31.9 Bipolar disorder, unspecified; F41.1 Generalized anxiety disorder; Z79.899 Other long term (current) drug therapy; Z88.2 Allergy status to sulfonamides
CPT/HCPCS: 36415; 47563; 80053; 83735; 84100; 85027; 88304; 96365; 96366; A9270; G0378; J0696; J1100; J1836; J2405; J2704; J2710; J3010; J3475; J3490; J7030; J7120; U0002